=== PATIENT | female | born 1985 | race Caucasian/White ===

== ENCOUNTER 2016-07-29 15:32 | Emergency (ER) | payer SELFPAY ==
[~2016-07-29] VITALS: Ht 167.6 cm; Wt 59.0 kg
[~2016-07-29 15:32] MED LIST: ABILIFY; AMOX500C2 PO; ARPZ10T PO; CLNZ.5T PO; CLON0.5T3; DESV100T PO; ESTR2TAB4 PO; FLUO20CA25 PO; HYDR-3720 PO; HYDR25CA5 PO; METR500T PO; PENI500T PO; PROZAC; SULF1TAB38 PO; TRAM50TA2 PO
[2016-07-29] MEDS ORDERED: ONDANSETRON 4 MG (ZOFRAN) ORAL DISSOLVE TAB PO ONE (16:15)
--- NOTE | 2016-07-29 16:17 | ED GU-Female ---
General Chief Complaint: Abdominal/GI Problems Stated Complaint: PELVIC PAIN/SWELLING/VAG DISCHARGE/ODOR Nursing Triage Note: PT STATES LOW ABD PAIN ON BOTH SIDES AND VAGINAL DISCHARGE. Nursing Sepsis Screen: No Definite Risk Source: patient Exam Limitations: no limitations History of Present Illness Time seen by provider: 16:09 Initial Comments This 30-year-old white female presents with a complaint of pelvic pain and vaginal discharge present for the last 2 days. The patient denies significant fever, chills, dysuria or frequency, associated diarrhea or vomiting. The patient has been nauseated with her pain. Patient is unclear whether is a possibility. The patient is a Ab1 white female. Past medical history includes positive HPV. Allergies and Home Medications Allergies Coded Allergies: No Known Allergies (Verified Allergy, Unknown, 10/24/06) Home Medications No Active Prescriptions or Reported Meds Constitutional: No chills, No fever EENTM: No ear pain, No vision loss Respiratory: No cough Cardiovascular: No chest pain Gastrointestinal: No abdominal pain, No diarrhea, No vomiting Genitourinary: see HPI, discharge, pain (pelvic pain) Musculoskeletal: No back pain, No joint pain Skin: No rash Psychiatric/Neurological: No Symptoms Reported Endocrine: No Symptoms Reported Hematologic/Lymphatic: No Symptoms Reported Past Hbobzvo-Lefkzo-Qxehgr Hx Patient Social History Alcohol Use: Rarely Uses Recreational Drug Use: No Smoking Status: Current Everyday Smoker Type Used: Cigarettes Recent Foreign Travel: No Contact w/Someone Who Travel: No Recent Infectious Disease Expo: No Recent Hopitalizations: No Immunizations Up To Date Tetanus Booster (TDap): Less than 5yrs Seasonal Allergies Seasonal Allergies: No Surgeries HX Surgeries: No Respiratory Hx Respiratory Disorders: No Cardiovascular Hx Cardiac Disorders: No Neurological Hx Neurological Disorders: No Reproductive System : No Genitourinary Hx Genitourinary Disorders: No Gastrointestinal Hx Gastrointestinal Disorders: No Musculoskeletal Hx Musculoskeletal Disorders: No Endocrine Hx Endocrine Disorders: No HEENT HX ENT Disorders: No Cancer Hx Cancer: No Psychosocial Hx Psychiatric Problems: No Integumentary HX Skin/Integumentary Disorder: No Blood Transfusions Hx Blood Disorders: Yes (HEP C) Reviewed Nursing Assessment Reviewed/Agree w Nursing PMH: Yes Family Medical History Significant Family History: No Pertinent Family Hx Physical Exam Vital Signs Vital Sign - Last 12Hours 07/29/16 15:42 Temp 95.2 Pulse 90 Resp 18 B/P (MAP) 118/83 Pulse Ox 96 O2 Delivery Room Air Capillary Refill : Less Than 3 Seconds General Appearance: WD/WN, no apparent distress HEENT: normal ENT inspection Neck: non-tender, full range of motion, supple Cardiovascular: regular rate, rhythm, no murmur Respiratory: lungs clear, normal breath sounds Gastrointestinal: normal bowel sounds, non tender, soft Pelvic: normal external exam, discharge (small amount of whitish discharge is present.), tender w/ cervical motion, No tender adnexa, tender uterus (uterus was mildly tender to palpation on bimanual.) Back: normal inspection, no CVA tenderness Extremities: normal range of motion, non-tender, normal inspection Neurologic/Psychiatric: no motor/sensory deficits, alert, normal mood/affect Skin: normal color, warm/dry Progress/Results/Core Measures Results/Orders Lab Results Laboratory Tests Test 07/29/16 16:25 07/29/16 16:42 07/29/16 17:00 Range/Units Urine Color YELLOW Urine Clarity CLEAR Urine pH 6 5-9 Urine Specific Dent 1.015 L 1.016-1.022 Urine Protein NEGATIVE NEGATIVE Urine Glucose (UA) NEGATIVE NEGATIVE Urine Ketones NEGATIVE NEGATIVE Urine Nitrite NEGATIVE NEGATIVE Urine Bilirubin NEGATIVE NEGATIVE Urine Urobilinogen NORMAL NORMAL MG/DL Urine Leukocyte Esterase 2+ H NEGATIVE Urine RBC (Auto) NEGATIVE NEGATIVE Urine RBC NONE /HPF Urine WBC 2-5 /HPF Urine Squamous Epithelial Cells 5-10 /HPF Urine Crystals NONE /LPF Urine Bacteria NEGATIVE /HPF Urine Casts NONE /LPF Urine Mucus NEGATIVE /LPF Urine Trichomonas FEW H /HPF Urine Culture Indicated NO Urine Test NEGATIVE NEGATIVE White Blood Count 11.6 H 4.3-11.0 10^3/uL Red Blood Count 4.35 4.35-5.85 10^6/uL Hemoglobin 13.8 11.5-16.0 G/DL Hematocrit 40 35-52 % Mean Corpuscular Volume 91 80-99 FL Mean Corpuscular Hemoglobin 32 25-34 PG Mean Corpuscular Hemoglobin Concent 35 32-36 G/DL Red Cell Distribution Width 13.1 10.0-14.5 % Platelet Count 262 130-400 10^3/uL Mean Platelet Volume 10.1 7.4-10.4 FL Neutrophils (%) (Auto) 56 42-75 % Lymphocytes (%) (Auto) 30 12-44 % Monocytes (%) (Auto) 10 0-12 % Eosinophils (%) (Auto) 3 0-10 % Basophils (%) (Auto) 0 0-10 % Neutrophils # (Auto) 6.5 1.8-7.8 X 10^3 Lymphocytes # (Auto) 3.5 1.0-4.0 X 10^3 Monocytes # (Auto) 1.2 H 0.0-1.0 X 10^3 Eosinophils # (Auto) 0.3 0.0-0.3 10^3/uL Basophils # (Auto) 0.1 0.0-0.1 10^3/uL My Orders Orders - MICHELLE ALCARAZ MD Cbc With Automated Diff (07/29/16 16:07) Comprehensive Metabolic Panel (07/29/16 16:07) Ua Culture If Indicated (07/29/16 16:07) Hcg,Qualitative Urine (07/29/16 16:07) Ondansetron Oral Dissolve Tab (Zofran (07/29/16 16:15) Tramadol Tablet (Ultram Tablet) (07/29/16 16:15) Ua Culture If Indicated (07/29/16 16:53) Hcg,Qualitative Urine (07/29/16 16:53) Neisseria Gonorrhea Dna (07/29/16 16:53) Chlam Dna Probe (07/29/16 16:53) Wet Prep (07/29/16 16:53) Danielle Prep (07/29/16 16:53) Ceftriaxone Injection (Rocephin Injectio (07/29/16 17:15) Medications Given in ED Current Medications Medications Dose Ordered Sig/Michelle Route Start Time Stop Time Status Last Admin Dose Admin Ondansetron HCl 4 mg ONCE ONCE PO 07/29/16 16:15 07/29/16 16:16 DC 07/29/16 17:02 4 MG Tramadol HCl 100 mg ONCE ONCE PO 07/29/16 16:15 07/29/16 16:16 DC 07/29/16 17:02 100 MG Vital Signs/I&O Vital Sign - Last 12Hours 07/29/16 15:42 Temp 95.2 Pulse 90 Resp 18 B/P (MAP) 118/83 Pulse Ox 96 O2 Delivery Room Air Blood Pressure Mean: 95 Progress Note : Time: 17:06 Progress Note Patient received 250 mg Rocephin IM. She was placed on doxycycline 100 mg twice a day for the next 2 weeks as well as Flagyl 500 mg twice a day for 14 days. She was given hydrocodone and a small amount for pain. The patient will follow up with [facility] in 2 days as scheduled. Departure Impression Impression: Primary Impression: PID (acute pelvic inflammatory disease) Disposition: HOME, SELF-CARE Condition: Improved Departure-Patient Inst. Decision time for Depature: 17:09 Referrals: [facility] (PCP/Family) Primary Care Physician Patient Instructions: Acute Pelvic Pain (DC) Add. Discharge Instructions: Flagyl and doxycycline as prescribed for infection. Close follow-up with [facility] as scheduled on Saturday. Vicodin for pain. Return of any problems. All discharge instructions reviewed with patient and/or family. Voiced understanding. Scripts No Active Prescriptions or Reported Meds MICHELLE ALCARAZ MD Jul 29, 2016 16:17
[2016-07-29 16:33] LABS: BILIRUBIN,URINE NEGATIVE (NEGATIVE); KETONES,URINE NEGATIVE (NEGATIVE); LEUKOCYTE ESTERASE ,URINE 2+ (NEGATIVE); NITRITE,URINE NEGATIVE (NEGATIVE); PH,URINE 6 (5-9); PROTEIN,URINE NEGATIVE (NEGATIVE); UROBILINOGEN,URINE NORMAL (NORMAL)
[2016-07-29 16:45] LABS: TRICHOMONAS,URINE FEW /HPF
[2016-07-29 16:49] LABS: BASOPHILS # (AUTO) 0.1 10^3/uL (0.0-0.1); BASOPHILS % (AUTO) 0 % (0-10); EOSINOPHILS # (AUTO) 0.3 10^3/uL (0.0-0.3); EOSINOPHILS % (AUTO) 3 % (0-10); LYMPHOCYTES # (AUTO) 3.5 X 10^3 (1.0-4.0); LYMPHOCYTES % (AUTO) 30 % (12-44); MEAN CORPUSCULAR HEMOGLOBIN 32 PG (25-34); MEAN CORPUSCULAR HGB CONC 35 G/DL (32-36); MEAN CORPUSCULAR VOLUME 91 FL (80-99); MEAN PLATELET VOLUME 10.1 FL (7.4-10.4); MONOCYTES # (AUTO) 1.2 X 10^3 (0.0-1.0); MONOCYTES % (AUTO) 10 % (0-12); NEUTROPHILS # (AUTO) 6.5 X 10^3 (1.8-7.8); NEUTROPHILS % (AUTO) 56 % (42-75); PLATELET COUNT 262 10^3/uL (130-400); RED BLOOD COUNT 4.35 10^6/uL (4.35-5.85); RED CELL DISTRIBUTION WIDTH 13.1 % (10.0-14.5); WHITE BLOOD COUNT 11.6 10^3/uL (4.3-11.0)
[2016-07-29 17:08] LABS: ALANINE AMINOTRANSFERASE 13 U/L (0-55); ALBUMIN 3.8 G/DL (3.2-4.5); ANION GAP 8 MMOL/L (5-14); ASPARTATE AMINO TRANSFERASE 17 U/L (5-34); BILIRUBIN,TOTAL 0.5 MG/DL (0.1-1.0); BLOOD UREA NITROGEN 9 MG/DL (7-18); BUN/CREATININE RATIO 13; CARBON DIOXIDE 26 MMOL/L (21-32); CHLORIDE 108 MMOL/L (98-107); CREATININE SERUM 0.71 MG/DL (0.60-1.30); GFR ESTIMATED > 60; GLUCOSE 79 MG/DL (70-105); SODIUM 142 MMOL/L (135-145); TOTAL PROTEIN 6.4 G/DL (6.4-8.2)
[2016-07-29] MEDS ORDERED: cefTRIAXone INJECTION 250 MG in NS (IVPB) 50 ML IV ONE (17:15)
[2016-07-29] MEDS ORDERED: LIDOCAINE PF 1% 5 ML (XYLOCAINE) AMP ONE (17:23)
[2016-07-29 17:48] VITALS: BP 122/87
[2016-08-01 07:13] LABS: CHLAMYDIA DNA PROBE PT Negative (Negative)
[2016-08-01 07:14] LABS: NEISSERIA GONORRHEA DNA Negative (Negative)
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
--- OUTSIDE RECORDS SUMMARY | 2016-08-21 12:20 | XMS REPORT | Continuity of Care Document ---
Author Author [facility] Organization [facility] Address Unknown Phone Unavailable Care Team Providers Care Kitchen Work Supervisor Name Role Phone [facility] OF Insurance Providers Payer Name Policy Number Subscriber Name Relationship Self Pay Norah Garcia 01 Self / Same As Patient Advance Directives Directive Response Recorded Date Advance Directives N 01/25/13 11:04am Organ Donor Y 01/25/13 11:04am Problems No Known Problems or Medical conditions. Social History History Response Recorded Date/Time Alcohol Use Occasionally Uses 01/25/13 11 :04am Recreational Drug Use N 01/25/13 11:04am Sexually Transmitted Disease HPV 11:04am Allergies, Adverse Reactions, Alerts Allergen Type Severity Reaction Last Updated No Known Allergies Allergy Unknown 10/24/06 Medications Medication Dose Units Route Sig Qty Days Tramadol Hcl 50 Mg PO Q4H 14 Trimethoprim/Sulfamethoxazole (Bactrim Ds) 1 Ea PO BID 10 Metronidazole 1 Each PO TID 10 Penicillin V Potassium (Pen-Vee K) 1 Tab PO TID 30 Tramadol Hcl 50 Mg PO NEEDED 7 Estradiol (Estrace) 2 Mg PO PC 10 Hydroxyzine Pamoate (Vistaril) 50 Mg PO Q6H PRN Desvenlafaxine Succinate (Pristiq) 100 Mg PO DAILY Response Recorded Date/Time Status not known Unknown Results No Known Relevant Diagnostic Tests, Laboratory Data and/or Discharge Summary. Procedures Procedure Code Date MANUAL ASSIST TREMAYNE KLEIN 73.59 10/23/06 Encounters Encounter Location Date/Time Departed Emergency Room [facility] 10:48am Registered Emergency Room [facility] 05/24/09 3:39pm Discharged Inpatient [facility] 6:00pm
== END 2016-07-29 17:47 | disposition home or self-care (01) ==
LOC: EDUNIT# 15:32 → ER 15:35
DX: N73.9 Female pelvic inflammatory disease, unspecified (principal); F17.210 Nicotine dependence, cigarettes, uncomplicated
CPT/HCPCS: 36415; 80053; 81000; 84703; 85025; 87210; 87491; 87591; 96372; 99284

== ENCOUNTER 2017-12-10 15:08 | Inpatient (IN) | payer MEDICAID ==
[2017-12-10] VITALS (31 sets, daily range): BP systolic 119–162; BP diastolic 72–103
[~2017-12-10] VITALS: Ht 167.6 cm; Wt 72.1 kg
--- OUTSIDE RECORDS SUMMARY | 2017-12-10 15:15 | XMS REPORT ---
Author Author ABENA MOSCOSO Organization [facility] Address [address] [place] [address] Care Team Providers Care Group Fitness Department Head Name Role Phone BETOCARLYLAVINIA ABENA Unavailable PROBLEMS Type Condition ICD9-CM Code MXT51-VF Code Onset Dates Condition Status SNOMED Code Problem Hepatitis C virus infection without hepatic coma, unspecified chronicity B19.20 Active 35114304 Problem Drug use complicating in second trimester O99.322 Active 03490859 Problem Urinary tract infection during in second trimester, antepartum O23.42 Active 880763760 Problem Supervision of with insufficient care O09.30 Active 5407905967186 Problem Constipation, unspecified constipation type K59.00 Active 44709507 Problem Other mental disorders complicating , third trimester O99.343 Active 254501775 Problem Supervision of other high risk pregnancies, third trimester O09.893 Active 22094410 Problem Other specified related conditions, third trimester O26.893 Active 99383939 Problem Heartburn R12 Active 22131415 Problem History of intravenous drug abuse Z87.898 Active 38870101262525012 Problem Bipolar disorder with depression F31.30 Active 95389352 Problem History of herpes zoster Z86.19 Active 628147563920753 Problem Supervision of high risk due to social problems, antepartum O09.70 Active 211255222 Problem Major depressive disorder, single episode, unspecified F32.9 Active 08585051 ALLERGIES No Information ENCOUNTERS Encounter Location Date Diagnosis [facility] [address] [id number] [place] [id number] Dec, [facility] [address] [id number] [place] [id number] Nov, [facility] [address] [id number] [id number] Nov, Other specified related conditions, third trimester O26.[address] [id number][place] [id number] Nov, [place] [id number] [place] [id number] Nov, Supervision of other high risk pregnancies, third trimester O09.893 ; Other mental disorders complicating , third trimester O99.343 ; Bipolar disorder with depression F31.30 ; Supervision of high risk due to social problems, antepartum O09.70 ; Hepatitis C virus infection without hepatic coma, unspecified chronicity B19.20 ; Other specified related conditions, third trimester O26.893 ; Heartburn R12 ; Supervision of with insufficient care O09.30 and Vaginal leukorrhea N89.8 [address] [id number] Oct, Supervision of other high risk pregnancies, third trimester O09.893 ; Supervision of high risk due to social problems, antepartum O09.70 ; Other mental disorders complicating , third trimester O99.343 ; Bipolar disorder with depression F31.30 ; Other specified related conditions, third trimester O26.893 ; Heartburn R12 ; Constipation, unspecified constipation type K59.00 ; Urinary tract infection during in second trimester, antepartum O23.42 ; Drug use complicating in second trimester O99.322 and Supervision of with insufficient care O09.[address] [id number][place] [id number] Oct, [address] [place] [id number] Oct, Supervision of other high risk pregnancies, third trimester O09.893 ; Other mental disorders complicating , third trimester O99.343 ; Bipolar disorder with depression F31.30 ; Supervision of high risk due to social problems, antepartum O09.70 ; Hepatitis C virus infection without hepatic coma, unspecified chronicity B19.20 ; Other specified related conditions, third trimester O26.893 ; Heartburn R12 ; Encounter for screening for Streptococcus B Z36.85 and Constipation, unspecified constipation type K59.00 [address]100[place] [id number] Oct, [facility] [id number] [id number] Oct, Supervision of other high risk pregnancies, third trimester O09.893 ; Other mental disorders complicating , third trimester O99.343 ; Bipolar disorder with depression F31.30 ; Hepatitis C virus infection without hepatic coma, unspecified chronicity B19.20 ; Other specified related conditions, third trimester O26.893 ; Heartburn R12 ; Supervision of high risk due to social problems, antepartum O09.70 ; History of intravenous drug abuse Z87.898 and Major depressive disorder, single episode, unspecified F32.9 [facility] [id number] [place] [address] [id number] Oct, [facility] [id number] [place] [address] [id number] Sep, Major depressive disorder, single episode, unspecified F32.9 [facility] [id number] [place] [address] [id number] Sep, [facility] [id number] [place] [address] [id number] Sep, Supervision of other high risk pregnancies, third trimester O09.893 ; Other mental disorders complicating , third trimester O99.343 ; Bipolar disorder with depression F31.30 ; History of intravenous drug abuse Z87.898 ; Supervision of high risk due to social problems, antepartum O09.70 ; Hepatitis C virus infection without hepatic coma, unspecified chronicity B19.20 ; Other specified related conditions, third trimester O26.893 ; Heartburn R12 and Encounter for immunization Z23 [place] [address] [facility] [id number] [id number] Sep, Supervision of other high risk pregnancies, third trimester O09.893 [facility] [id number][place] [id number] Sep, [address]100[place] [id number] Sep, [facility] [id number] [place] [address] [id number] Sep, Supervision of other high risk pregnancies, third trimester O09.893 ; Other mental disorders complicating , third trimester O99.343 ; Supervision of high risk due to social problems, antepartum O09.70 ; History of intravenous drug abuse Z87.898 ; Acute non-recurrent pansinusitis J01.40 ; Heartburn R12 ; Other specified related conditions, third trimester O26.893 and Elevated blood pressure reading R03.0 [facility] [address] [id number] [address] August, [facility] [id number] [place] [address] [id number] August, [facility] [id number] [place] [address] [id number] August, Supervision of other high risk pregnancies, second trimester O09.892 ; Supervision of other high risk pregnancies, third trimester O09.893 ; High risk sexual behavior Z72.51 ; Other mental disorders complicating , third trimester O99.343 ; Supervision of high risk due to social problems, antepartum O09.70 and Hepatitis C virus infection without hepatic coma, unspecified chronicity B19.20 [facility] [id number] [place] [address] [id number] August, Major depressive disorder, single episode, unspecified F32.9 [facility] [address] [place] [address] [id number] August, Vaginal leukorrhea N89.8 [facility] [address] [place] [address] [id number] August, [facility] [address] [place] [address] [id number] August, Supervision of other high risk pregnancies, second trimester O09.892 [facility] [id number] [place] [address] [id number] Jul, [facility] [id number] [place] [address] [id number] Jul, Supervision of high risk in first trimester O09.91 ; Supervision of other high risk pregnancies, second trimester O09.892 ; Other mental disorders complicating , second trimester O99.342 ; Drug use complicating in second trimester O99.322 ; History of herpes zoster Z86.19 ; Supervision of high risk due to social problems, antepartum O09.70 ; Bipolar disorder with depression F31.30 ; Hepatitis C virus infection without hepatic coma, unspecified chronicity B19.20 ; Urinary tract infection during in second trimester, antepartum O23.42 and Major depressive disorder, single episode, unspecified F32.[address] [id number][place] [id number] Jun, [address] [place] [address] [id number] Jun, [address]00565100[place] [id number] May, Supervision of high risk in first trimester O09.91 [address] [place] [address] [id number] May, Supervision of high risk in first trimester O09.91 ; Major depressive disorder, single episode, unspecified F32.9 ; Other mental disorders complicating , first trimester O99.341 ; Bipolar disorder with depression F31.30 ; History of intravenous drug abuse Z87.898 ; Drug use complicating in first trimester O99.321 ; Smoking (tobacco) complicating , first trimester O99.331 ; Supervision of high risk due to social problems, antepartum O09.70 ; History of herpes zoster Z86.19 and Hepatitis C virus infection without hepatic coma, unspecified chronicity B19.[address] [id number] [id number] Apr, Cold sore B00.1 and Positive test Z32.[address] [place] [address] [id number] Apr, Positive test Z32.01 and Folliculitis L73.[address] [place] [address] [id number] Mar, Cutaneous abscess of other site L02.818 and Folliculitis L73.9 [facility] [address] [facility] [id number][place] [id number] 26 Dec, 2016 Well woman exam with routine gynecological exam Z01.419 ; High risk sexual behavior Z72.51 ; History of HPV infection Z86.19 and History of abnormal cervical Pap smear Z87.898 [facility] [address]00565100[place], [place] [address] 14 Jul, 2014 [facility] [address]65100[place], [place] [address] 13 Jul, 2014 [facility] [address] [place] [address] Jan, [facility] [address]00565100[place], [place] [address] Jan, [facility] [id number] [place] [address] Jan, [facility] [address]65100[place], [place] [address] Jan, [facility] [address]65100[place], [place] [address] 8[address] Jan, [facility] [address]100[place], [place] [address] Jan, [facility] [address]100[place], [place] [address] Sep, [facility] [address]100[place], [place] [address] Sep, [facility] [address]100[place], [place] [address] Sep, [facility] [address]100[place], [place] [address] August, [facility] [address]100[place], [place] [address] August, [facility] [address] [facility] [id number], [place] [address] August, [facility] [address] [facility] [id number], [place] [address] Jul, [facility] [address] [facility] [id number], [place] [address] Feb, [facility] [address] [facility] [id number] [place] [address]87[address]- 3509 Feb, [facility] [address] [facility] [id number], [place] [address] Dec, [facility] [address] [facility] [id number] [place] [address]- [address] Oct, [facility] [address]100[place], [place] [address] 5[address] Sep, [facility] [address] [place] [address] 89946- 2497 Sep, [facility] [address]100[place], [place] [address] Jul, [facility] [address]100[place], [place] [address]- 29[address] Feb, [facility] [address]100[place], [place] [address]- 0140 Jan, [facility] [address], [place] [address]- 8277 Jan, [facility] [address] [id number] [address]- [address] Jan, [facility] [address]100[place], [place] [address]- [address] Jan, [facility] [address] [id number] [address] Oct, IMMUNIZATIONS No Known Immunizations SOCIAL HISTORY Never Assessed REASON FOR VISIT Triage Yulisa QUIROZ PLAN OF CARE VITAL SIGNS MEDICATIONS Medication Instructions Dosage Frequency Start Date End Date Duration Status Zoloft 100 mg Orally Once a day 1 tablet 24h Jul, 0 days Active RESULTS No Results PROCEDURES No Known procedures INSTRUCTIONS MEDICATIONS ADMINISTERED No Known Medications MEDICAL (GENERAL) HISTORY Type Description Date Medical History hepatitis C Medical History HPV-had to have laser surgery for warts Medical History HX of shingles on face Medical History Herpes zoster without mention of complication Surgical History Laser surgery for genital warts age 16
--- OUTSIDE RECORDS SUMMARY | 2017-12-10 15:15 | XMS REPORT ---
Author Author ABENA MOSCOSO Organization [facility] Address [address] [place] [address] Care Team Providers Care Seam Checker Name Role Phone BETOCARLYLAVINIA ABENA Unavailable PROBLEMS Type Condition ICD9-CM Code FVR84-GD Code Onset Dates Condition Status SNOMED Code Problem Hepatitis C virus infection without hepatic coma, unspecified chronicity B19.20 Active 66346710 Problem Drug use complicating in second trimester O99.322 Active 47511486 Problem Urinary tract infection during in second trimester, antepartum O23.42 Active 528342692 Problem Supervision of with insufficient care O09.30 Active 4792003462857 Problem Constipation, unspecified constipation type K59.00 Active 60322581 Problem Other mental disorders complicating , third trimester O99.343 Active 468800885 Problem Supervision of other high risk pregnancies, third trimester O09.893 Active 08741774 Problem Other specified related conditions, third trimester O26.893 Active 54247287 Problem Heartburn R12 Active 59653929 Problem History of intravenous drug abuse Z87.898 Active 69742955335923632 Problem Bipolar disorder with depression F31.30 Active 28371306 Problem History of herpes zoster Z86.19 Active 794669407139656 Problem Supervision of high risk due to social problems, antepartum O09.70 Active 442814602 Problem Major depressive disorder, single episode, unspecified F32.9 Active 19342095 ALLERGIES No Information ENCOUNTERS Encounter Location Date Diagnosis [facility] [address] [id number] [place] [id number] Dec, [facility] [address] [id number] [place] [id number] 14 Nov, 2017 [facility] [address] [id number] [place] [id number] Nov, Other specified related conditions, third trimester O26.[address] [id number], [place] [id number] Nov, [place] [id number] [place] [address] [id number] Nov, Supervision of other high risk pregnancies, [...] insufficient care O09.30 and Vaginal leukorrhea N89.[address]00565100[place], [place] [id number] Oct, Supervision of other high risk pregnancies, [...] and Supervision of with insufficient care O09.[address] [id number][place] [id number] Oct, [address] [place] [address] [id number] Oct, Supervision of other high risk pregnancies, [...] Z36.85 and Constipation, unspecified constipation type K59.00 [address]00565100[place], [place] [id number] Oct, [facility] [id number], [place] [id number] Oct, Supervision of other high risk pregnancies, [...] Major depressive disorder, single episode, unspecified F32.9 [facility] [id number] [place] [address] [id number] Oct, [facility] [id number] [place] [address] [id number] Sep, Major depressive disorder, single episode, unspecified F32.9 [facility] [id number] [place] [address] [id number] Sep, [facility] [id number] [place] [address] [id number] Sep, Supervision of other high risk pregnancies, [...] Heartburn R12 and Encounter for immunization Z23 [place] [id number] [facility] [id number] [place] [id number] Sep, Supervision of other high risk pregnancies, third trimester O09.893 [facility] [id number], [place] [id number] Sep, [address]00565100[place], [place] [id number] Sep, [facility] [id number] [place] [address] [id number] Sep, Supervision of other high risk pregnancies, third trimester O09.893 ; Other mental disorders complicating , third trimester O99.343 ; Supervision of high risk due to social problems, antepartum O09.70 ; History of intravenous drug abuse Z87.898 ; Acute non-recurrent pansinusitis J01.40 ; Heartburn R12 ; Other specified related conditions, third trimester O26.893 and Elevated blood pressure reading R03.0 [facility] [address] [id number], [place] [address] August, [facility] [id number] [place] [address] [id number] August, [facility] [id number] [place] [address] [id number] August, Supervision of other high risk pregnancies, second trimester O09.892 ; Supervision of other high risk pregnancies, third trimester O09.893 ; High risk sexual behavior Z72.51 ; Other mental disorders complicating , third trimester O99.343 ; Supervision of high risk due to social problems, antepartum O09.70 and Hepatitis C virus infection without hepatic coma, unspecified chronicity B19.20 [facility] [id number] [place] [address] [id number] August, Major depressive disorder, single episode, unspecified F32.9 [facility] [id number] [place] [address] [id number] August, Vaginal leukorrhea N89.8 [facility] [id number] [place] [address] [id number] August, [facility] [address] [place] [address] [id number] August, Supervision of other high risk pregnancies, second trimester O09.892 [facility] [id number] [place] [address] [id number] Jul, [facility] [id number] [place] [address] [id number] Jul, Supervision of high risk in first [...] Major depressive disorder, single episode, unspecified F32.[address] [id number], [place] [id number] Jun, [address] [place] [address] [id number] Jun, [address]00565100[place] [id number] May, Supervision of high risk in first trimester O09.91 [address] [place] [address] [id number] May, Supervision of high risk in first [...] infection without hepatic coma, unspecified chronicity B19.[address] [id number][place] [id number] Apr, Cold sore B00.1 and Positive test Z32.01 [address] [place] [address] [id number] Apr, Positive test Z32.01 and Folliculitis L73.[address] [place] [address] [id number] Mar, Cutaneous abscess of other site L02.818 and Folliculitis L73.9 [facility] [address] [facility] [id number][place] [id number] 26 Dec, 2016 Well woman exam with routine gynecological exam Z01.419 ; High risk sexual behavior Z72.51 ; History of HPV infection Z86.19 and History of abnormal cervical Pap smear Z87.898 [facility] [address]00565100[place], [place] [address] 14 Jul, 2014 [facility] [address]00565100[place], [place] [address]- [address] 13 Jul, 2014 [facility] [address] [place] [address] 073590- 2679 Jan, [facility] [address]00565100[place], [place] [address]- 4189 Jan, [facility] [id number] [place] [address] 49[address]- 5910 Jan, [facility] [address]005[address]100[place], [place] [address]- 3227 Jan, [facility] [address]005[address]100[place], [place] [address]- 7839 Jan, [facility] [address]005[address]100[place], [place] [address]- 6805 Jan, [facility] [address], [place] [address]- 7836 Sep, [facility] [address]100[place] [address]- 5325 Sep, [facility] [address]100[place], [place] [address]- 3359 Sep, [facility] [address] [address]36 August, [facility] [address]005[address]100[place], [place] [address]- 5446 August, [facility] [address] [facility] [id number], [place] [address]- 8606 August, [facility] [address] [facility] [id number], [place] [address]- 1492 Jul, [facility] [address] [facility] [id number], [place] [address]- 5756 Feb, [facility] [address] [facility] [id number] [place] [address]19- 3220 Feb, [facility] [address] [facility] [id number] [address]- 1240 Dec, [facility] [address] [facility] [id number] [place] [address] 38491- 0589 Oct, [facility] [address] [id number], [place] [address]- 6205 Sep, [facility] [address]005[address], [place] [address]- 4249 Sep, [facility] [address], [place] [address]- 2143 Jul, [facility] [address], [place] [address]- 9160 Feb, [facility] [address]005[address], [place] [address]- 2562 Jan, [facility] [address], [place] [address]- 0765 Jan, [facility] [address] [id number] 6192 Jan, [facility] [address]005[address]100[place], [place] [address]- 6863 Jan, [facility] [address] [id number], [place] [address]- 5278 Oct, IMMUNIZATIONS No Known Immunizations SOCIAL HISTORY Never Assessed REASON FOR VISIT vaginal itch and burn PLAN OF CARE VITAL SIGNS MEDICATIONS Medication Instructions Dosage Frequency Start Date End Date Duration Status Diflucan 150 MG Orally Once a day 1 tablet 24h August, 1 dose Active RESULTS No Results PROCEDURES No Known [...]
--- OUTSIDE RECORDS SUMMARY | 2017-12-10 15:16 | XMS REPORT ---
Author Author ABENA MOSCOSO Organization [facility] Address [address] [place] [address] Care Team Providers Care Epic Beacon Analyst Name Role Phone BETOCARLYMALIKACatrachita ABENA Unavailable PROBLEMS Type Condition ICD9-CM Code BVB28-ZN Code Onset Dates Condition Status SNOMED Code Problem Hepatitis C virus infection without hepatic coma, unspecified chronicity B19.20 Active 16933882 Problem Drug use complicating in second trimester O99.322 Active 08986092 Problem Urinary tract infection during in second trimester, antepartum O23.42 Active 107928342 Problem Supervision of with insufficient care O09.30 Active 2824522379543 Problem Constipation, unspecified constipation type K59.00 Active 23443709 Problem Other mental disorders complicating , third trimester O99.343 Active 247222624 Problem Supervision of other high risk pregnancies, third trimester O09.893 Active 69775927 Problem Other specified related conditions, third trimester O26.893 Active 92156008 Problem Heartburn R12 Active 04126232 Problem History of intravenous drug abuse Z87.898 Active 40849802226681453 Problem Bipolar disorder with depression F31.30 Active 49783813 Problem History of herpes zoster Z86.19 Active 045185803796090 Problem Supervision of high risk due to social problems, antepartum O09.70 Active 391821244 Problem Major depressive disorder, single episode, unspecified F32.9 Active 55263731 ALLERGIES No Known Allergies ENCOUNTERS Encounter Location Date Diagnosis [facility] [address] [id number] [place] [id number] Dec, [facility] [address] [id number] [place] [id number] Nov, [facility] [address] [id number] [place] [id number] Oct, Supervision of other high risk pregnancies, [...] and Supervision of with insufficient care O09.30 [id number] [place] [address] [id number] Oct, [id number] [place] [address] [id number] Oct, Supervision of other high risk pregnancies, [...] Z36.85 and Constipation, unspecified constipation type K59.00 [id number] [place] [address] [id number] Oct, [id number] [place] [address] [id number] Oct, Supervision of other high risk pregnancies, [...] Major depressive disorder, single episode, unspecified F32.9 [address] [place] [address] [id number] Oct, [id number] [place] [address] [id number] Sep, Major depressive disorder, single episode, unspecified F32.9 [facility] [id number] [place] [id number] Sep, [facility] [id number] [place] [address] [id number] Sep, Supervision of other high risk pregnancies, [...] Heartburn R12 and Encounter for immunization Z23 [address] [id number] [id number] Sep, Supervision of other high risk pregnancies, third trimester O09.893 [facility] [id number] [place] [address] [id number] Sep, [facility] [id number] [place] [address] [id number] Sep, [facility] [id number] [place] [address] [id number] Sep, Supervision of other high risk pregnancies, third trimester O09.893 ; Other mental disorders complicating , third trimester O99.343 ; Supervision of high risk due to social problems, antepartum O09.70 ; History of intravenous drug abuse Z87.898 ; Acute non-recurrent pansinusitis J01.40 ; Heartburn R12 ; Other specified related conditions, third trimester O26.893 and Elevated blood pressure reading R03.0 [facility] [address] [id number] [address] August, [facility] [id number] [place] [id number] August, [facility] [id number] [place] [address] [id number] August, Supervision of other high risk pregnancies, second trimester O09.892 ; Supervision of other high risk pregnancies, third trimester O09.893 ; High risk sexual behavior Z72.51 ; Other mental disorders complicating , third trimester O99.343 ; Supervision of high risk due to social problems, antepartum O09.70 and Hepatitis C virus infection without hepatic coma, unspecified chronicity B19.20 [facility] [id number] [place] [id number] August, Major depressive disorder, single episode, unspecified F32.9 [facility] [id number] [place] [id number] August, Vaginal leukorrhea N89.8 [facility] [id number] [place] [address] [id number] August, [facility] [id number] [place] [address] [id number] August, Supervision of other high risk pregnancies, second trimester O09.892 [facility] [id number] [place] [address] [id number] Jul, [facility] [id number] [place] [address] [id number] Jul, Supervision of high risk in first [...] Major depressive disorder, single episode, unspecified F32.9 [facility] [id number] [place] [id number] Jun, [facility] [address]00565100[place] [id number] Jun, [address] [id number], [place] [id number] May, Supervision of high risk in first trimester O09.91 [id number] [place] [address] [id number] May, Supervision of high risk in first [...] infection without hepatic coma, unspecified chronicity B19.[address] [id number] Apr, Cold sore B00.1 and Positive test Z32.[address] [id number] Apr, Positive test Z32.01 and Folliculitis L73.9 [id number] [place] [address] [id number] Mar, Cutaneous abscess of other site L02.818 and Folliculitis L73.9 [id number] [place] [address] [id number] Dec, Well woman exam with routine gynecological exam Z01.419 ; High risk sexual behavior Z72.51 ; History of HPV infection Z86.19 and History of abnormal cervical Pap smear Z87.898 [id number] [place] [address] Jul, [address] [id number]- [address] Jul, [facility] [address] [id number]- [address] Jan, [facility] [address] [id number]- [address] Jan, [facility] [address] [id number] [place] [address] Jan, [facility] [place] [facility] [address] [id number] [place] [address] Jan, [facility] [place] [facility] [address] [id number] [place] [address] Jan, [facility] [place] [facility] [address] [id number] [place] [address]47 Jan, [facility] [address] [id number] [place] [address] Sep, [facility] [place] [facility] [address] [id number] [place] [address] Sep, [facility] [place] [facility] [address] [id number] [place] [address] Sep, [facility] [place] [facility] [address] [id number] [place] [address] August, [facility] [place] [facility] [address] [id number] [place] [address] August, [facility] [place] [facility] [address] [id number] [place] [address] August, [facility] [place] [facility] [address] [id number] [place] [address] Jul, [facility] [place] [facility] [address] [id number] [place] [address] Feb, [facility] [place] [facility] [address] [id number] [place] [address] Feb, [facility] [place] [facility] [address] [id number] [place] [address] Dec, [facility] [place] [facility] [address] [id number] [place] [address] Oct, [facility] [place] [facility] [address] [id number] [place] [address] Sep, [facility] [address]00565100[place] [address] Sep, [facility] [address]00565100[place] [address] Jul, [facility] [address]00565100[place] [address] Feb, [facility] [address] [place] [address] Jan, [facility] [address] [place] [address]- 4556 Jan, [facility] [address] [place] [address]- 9696 Jan, [facility] [address]00565100[place] [address] Jan, [facility] [address]00565100[place] [address] Oct, IMMUNIZATIONS No Known Immunizations SOCIAL HISTORY Never Assessed REASON FOR VISIT OB f/u 19 weeks and 5 days ---RICHIE weinstein PLAN OF CARE Activity Details Follow Up 5 weeks Reason: Pending Test URINE DRUG SCREEN (IN HOUSE) Pending Test UA LONG DIP (IN HOUSE) Pending Test PAP REFLEX TO HPV IF ASCUS VITAL SIGNS Height 66 in 2017-08-01 Weight 132.8 lbs 2017-08-01 Temperature 97.2 degrees Fahrenheit 2017-08-01 Heart Rate 112 bpm 2017-08-01 Respiratory Rate 16 2017-08-01 BMI 21.434 kg/m2 2017-08-01 Blood pressure systolic 110 mmHg 2017-08-01 Blood pressure diastolic 76 mmHg 2017-08-01 MEDICATIONS Medication Instructions Dosage Frequency Start Date End Date Duration Status Macrobid 100 mg Orally every 12 hrs 1 capsule with food 12h Jul, Jul, 7 day(s) Active Classic 28-0.8 MG Orally Once a day as directed 24h May, 30 days Active Zoloft 100 mg Orally Once a day 1 tablet 24h Jul, 30 day(s) Active Acyclovir 5 % Externally Five times a day 1 application to affected area Apr, 4 day(s) Active RESULTS No Results PROCEDURES Procedure Date Ordered Result Body Site [facility] August 01, 2017 URINALYSIS, AUTO, W/O SCOPE August 01, 2017 VENIPUNCT, ROUTINE* August 01, 2017 CHRMOML ANEUPLOIDY August 01, 2017 DRUG TEST PRSMV DIR OPT OBS August 01, 2017 TRICHINELLA ANTIBODY August 01, 2017 SPECIMEN HANDLING August 01, 2017 INSTRUCTIONS MEDICATIONS ADMINISTERED No Known Medications MEDICAL (GENERAL) HISTORY Type Description Date Medical History hepatitis C Medical History HPV-had to have laser surgery for warts Medical History HX of shingles on face Medical History Herpes zoster without mention of complication Surgical History Laser surgery for genital warts age 16
--- OUTSIDE RECORDS SUMMARY | 2017-12-10 15:16 | XMS REPORT ---
Author Author ABENA MOSCOSO Organization [facility] Address [address] [place] [address] Care Team Providers Care Rn Transfer Name Role Phone BETOCARLYLAVINIA ABENA Unavailable PROBLEMS Type Condition ICD9-CM Code WAN69-PB Code Onset Dates Condition Status SNOMED Code Problem Hepatitis C virus infection without hepatic coma, unspecified chronicity B19.20 Active 83841223 Problem Drug use complicating in second trimester O99.322 Active 76711852 Problem Urinary tract infection during in second trimester, antepartum O23.42 Active 665353611 Problem Supervision of with insufficient care O09.30 Active 7289743965880 Problem Constipation, unspecified constipation type K59.00 Active 18025608 Problem Other mental disorders complicating , third trimester O99.343 Active 467474159 Problem Supervision of other high risk pregnancies, third trimester O09.893 Active 53773978 Problem Other specified related conditions, third trimester O26.893 Active 66027850 Problem Heartburn R12 Active 40216601 Problem History of intravenous drug abuse Z87.898 Active 77338601428908442 Problem Bipolar disorder with depression F31.30 Active 57598350 Problem History of herpes zoster Z86.19 Active 854963920124399 Problem Supervision of high risk due to social problems, antepartum O09.70 Active 870518705 Problem Major depressive disorder, single episode, unspecified F32.9 Active 48555673 ALLERGIES No Information ENCOUNTERS Encounter Location Date Diagnosis [facility] [address] [id number] [place] [id number] Dec, [facility] [address] [id number][place] [id number] Nov, [facility] [address] [id number], [place] [id number] Nov, [facility] [address]00565[place] [id number] Nov, Supervision of other high risk pregnancies, [...] insufficient care O09.30 and Vaginal leukorrhea N89.[address] [place] [address] [id number] Oct, Supervision of other high risk pregnancies, [...] and Supervision of with insufficient care O09.30 [address] [place] [address] [id number] Oct, [address] [place] [address] [id number] Oct, Supervision of other high risk pregnancies, [...] Z36.85 and Constipation, unspecified constipation type K59.00 [address]00565[place] [id number] Oct, [id number] [place] [address] [id number] Oct, Supervision of other high risk pregnancies, [...] Major depressive disorder, single episode, unspecified F32.9 [facility] [id number] [place] [address] [id number] Oct, [facility] [id number] [place] [address] [id number] Sep, Major depressive disorder, single episode, unspecified F32.9 [facility] [id number] [place] [address] [id number] Sep, [facility] [id number] [place] [address] [id number] Sep, Supervision of other high risk pregnancies, [...] Heartburn R12 and Encounter for immunization Z23 [address] [id number] [id number] Sep, Supervision of other high risk pregnancies, third trimester O09.893 [facility] [address] [facility] [id number][place] [id number] Sep, [facility] [id number], [place] [id number] Sep, [facility] [id number], [place] [id number] Sep, Supervision of other high risk pregnancies, third trimester O09.893 ; Other mental disorders complicating , third trimester O99.343 ; Supervision of high risk due to social problems, antepartum O09.70 ; History of intravenous drug abuse Z87.898 ; Acute non-recurrent pansinusitis J01.40 ; Heartburn R12 ; Other specified related conditions, third trimester O26.893 and Elevated blood pressure reading R03.0 [facility] [address] [id number] [address] August, [facility] [id number] [place] [address] [id number] August, [facility] [id number] [place] [address] [id number] August, Supervision of other high risk pregnancies, second trimester O09.892 ; Supervision of other high risk pregnancies, third trimester O09.893 ; High risk sexual behavior Z72.51 ; Other mental disorders complicating , third trimester O99.343 ; Supervision of high risk due to social problems, antepartum O09.70 and Hepatitis C virus infection without hepatic coma, unspecified chronicity B19.20 [facility] [id number] [place] [address] [id number] August, Major depressive disorder, single episode, unspecified F32.9 [facility] [id number] [place] [address] [id number] August, Vaginal leukorrhea N89.8 [facility] [id number] [place] [address] [id number] August, [facility] [id number] [place] [address] [id number] August, Supervision of other high risk pregnancies, second trimester O09.892 [facility] [id number] [place] [address] [id number] Jul, [facility] [id number] [place] [address] [id number] Jul, Supervision of high risk in first [...] Major depressive disorder, single episode, unspecified F32.[address] [id number], [place] [id number] Jun, [address] [place] [address] [id number] Jun, [address] [id number], [place] [id number] May, Supervision of high risk in first trimester O09.91 [address] [place] [address] [id number] May, Supervision of high risk in first [...] infection without hepatic coma, unspecified chronicity B19.20 [address] [place] [address] [id number] Apr, Cold sore B00.1 and Positive test Z32.01 [address] [place] [address] [id number] Apr, Positive test Z32.01 and Folliculitis L73.9 [id number] [place] [address] [id number] Mar, Cutaneous abscess of other site L02.818 and Folliculitis L73.9 [address] [place] [address] [id number] 26 Sep, 2017 Well woman exam with routine gynecological exam Z01.419 ; High risk sexual behavior Z72.51 ; History of HPV infection Z86.19 and History of abnormal cervical Pap smear Z87.898 [facility] [address]00565100[place] [address] 14 Jul, 2014 [facility] [address]00565[address] [address] Jul, [facility] [address] [facility] [id number] [place] [address]- [address] Jan, [facility] [address] [facility] [id number] [place] [address] 496639- 5842 Jan, [facility] [id number] [place] [address] 453113- 7585 Jan, [facility] [id number] [place] [address] 32515- 1482 Jan, [facility] [id number] [place] [address]31- 2801 Jan, [facility] [address]00565100[place] [address] Jan, [facility] [address]00565100[place] [address] Sep, [facility] [address]00565100[place], [place] [address]- 7[address] Sep, [facility] [address]00565100[place], [place] [address]- 8835 Sep, [facility] [address]00565100[place] [address] August, [facility] [address] [id number], [place] [address]- 9409 August, [facility] [address]00565100[place], [place] [address]- 9[address] August, [facility] [address] [id number], [place] [address]- 6[address] Jul, [facility] [address]00565100[place], [place] [address]- 4[address] Feb, [facility] [address]00565100[place], [place] [address]- 3526 Feb, [facility] [address]00565100[place], [place] [address]- 9666 Dec, [facility] [address]00565100[place], [place] [address]- 1126 Oct, [facility] [address] [place] [address] 89772- 6453 Sep, [facility] [address] [place] [address] 40821- 0256 Sep, [facility] [address] [place] [address] 49545- 0022 Jul, [facility] [address]00565100[place], [place] [address]- 4[address] Feb, [facility] [address]00565100[place], [place] [address]- 8266 Jan, [facility] [address]00565100[place], [place] [address]- 5[address] Jan, [facility] [address]00565100[place], [place] [address]- 4345 Jan, [facility] [address]00565100[place], [place] [address]- [address] Jan, [facility] [address]00565100[place], [place] [address]- 9102 Oct, IMMUNIZATIONS No Known Immunizations SOCIAL HISTORY Never Assessed REASON FOR VISIT PLAN OF CARE VITAL SIGNS MEDICATIONS Unknown Medications RESULTS No Results PROCEDURES No Known procedures INSTRUCTIONS MEDICATIONS ADMINISTERED No Known Medications MEDICAL (GENERAL) HISTORY Type Description Date Medical History hepatitis C Medical History HPV-had to have laser surgery for warts Medical History HX of shingles on face Medical History Herpes zoster without mention of complication Surgical History Laser surgery for genital warts age 16
--- OUTSIDE RECORDS SUMMARY | 2017-12-10 15:16 | XMS REPORT ---
Author Author ABENA MOSCOSO Organization [facility] Address [address] [place] [address] Care Team Providers Care Auto Service Representative Name Role Phone BETOCARLYLAVINIA ABENA Unavailable PROBLEMS Type Condition ICD9-CM Code RLX74-OK Code Onset Dates Condition Status SNOMED Code Problem Hepatitis C virus infection without hepatic coma, unspecified chronicity B19.20 Active 08582294 Problem Drug use complicating in second trimester O99.322 Active 97646615 Problem Urinary tract infection during in second trimester, antepartum O23.42 Active 107860168 Problem Supervision of with insufficient care O09.30 Active 0442949171784 Problem Constipation, unspecified constipation type K59.00 Active 03594929 Problem Other mental disorders complicating , third trimester O99.343 Active 548915766 Problem Supervision of other high risk pregnancies, third trimester O09.893 Active 52452575 Problem Other specified related conditions, third trimester O26.893 Active 14841426 Problem Heartburn R12 Active 33432795 Problem History of intravenous drug abuse Z87.898 Active 95441650416187140 Problem Bipolar disorder with depression F31.30 Active 25984157 Problem History of herpes zoster Z86.19 Active 894593617863177 Problem Supervision of high risk due to social problems, antepartum O09.70 Active 975797267 Problem Major depressive disorder, single episode, unspecified F32.9 Active 98259426 ALLERGIES No Information ENCOUNTERS Encounter Location Date Diagnosis [facility] [address] [id number] [id number] Dec, [facility] [address] [facility] [id number] [id number] Nov, [facility] [address] [id number][place] [id number] Oct, Supervision of other high risk pregnancies, [...] and Supervision of with insufficient care O09.30 [address] [id number] [place] [address] [id number] Oct, [place] [id number] [place] [address] [id number] Oct, Supervision of other high risk pregnancies, [...] Z36.85 and Constipation, unspecified constipation type K59.00 [place] [id number] [place] [address] [id number] Oct, [address] [place] [address] [id number] Oct, Supervision of other high risk pregnancies, [...] Major depressive disorder, single episode, unspecified F32.9 [address] [place] [address] [id number] Oct, [place] [id number] [place] [address] [id number] Sep, Major depressive disorder, single episode, unspecified F32.9 [facility] [id number], [place] [id number] Sep, [facility] [id number] [place] [address] [id number] Sep, Supervision of other high risk pregnancies, [...] Heartburn R12 and Encounter for immunization Z23 [address] [id number][place] [id number] Sep, Supervision of other high risk pregnancies, third trimester O09.893 [facility] [id number] [place] [address] [id number] Sep, [facility] [id number] [place] [address] [id number] Sep, [facility] [id number] [place] [address] [id number] Sep, Supervision of other high risk pregnancies, third trimester O09.893 ; Other mental disorders complicating , third trimester O99.343 ; Supervision of high risk due to social problems, antepartum O09.70 ; History of intravenous drug abuse Z87.898 ; Acute non-recurrent pansinusitis J01.40 ; Heartburn R12 ; Other specified related conditions, third trimester O26.893 and Elevated blood pressure reading R03.0 [facility] [address] [facility] [id number] [address] August, [facility] [id number], [place] [id number] August, [facility] [id number], [place] [id number] August, Supervision of other high risk pregnancies, second trimester O09.892 ; Supervision of other high risk pregnancies, third trimester O09.893 ; High risk sexual behavior Z72.51 ; Other mental disorders complicating , third trimester O99.343 ; Supervision of high risk due to social problems, antepartum O09.70 and Hepatitis C virus infection without hepatic coma, unspecified chronicity B19.20 [facility] [id number], [place] [id number] August, Major depressive disorder, single episode, unspecified F32.9 [facility] [id number], [place] [id number] August, Vaginal leukorrhea N89.8 [facility] [id number] [place] [address] [id number] August, [facility] [id number] [place] [address] [id number] August, Supervision of other high risk pregnancies, second trimester O09.892 [id number] [place] [address] [id number] Jul, [address] [place] [address] [id number] Jul, Supervision of high risk in first [...] Major depressive disorder, single episode, unspecified F32.9 [address]00565100[address] [id number] Jun, [facility] [address]00565100[place] [id number] Jun, [address] [id number][place] [id number] May, Supervision of high risk in first trimester O09.[address] [id number] May, Supervision of high risk in first [...] infection without hepatic coma, unspecified chronicity B19.[address] [id number] Apr, Cold sore B00.1 and Positive test Z32.[address] [id number] Apr, Positive test Z32.01 and Folliculitis L73.9 [place] [id number] [place] [address] [id number] Mar, Cutaneous abscess of other site L02.818 and Folliculitis L73.9 [place] [address] [place] [address] [id number] Dec, Well woman exam with routine gynecological exam Z01.419 ; High risk sexual behavior Z72.51 ; History of HPV infection Z86.19 and History of abnormal cervical Pap smear Z87.898 [place] [id number] [place] [id number]- [address] Jul, [place] [address] [id number]- [address] Jul, [facility] [id number] [place] [address]- [address] Jan, [facility] [address] 6[address]- [address] Jan, [facility] [address] [id number] [place] [address] Jan, [facility] [address] [id number] [place] [address] Jan, [facility] [address] [id number] [place] [address] Jan, [facility] [address] [id number] [place] [address] Jan, [facility] [address] [id number] [place] [address] Sep, [facility] [address] [id number] [place] [address] Sep, [facility] [address] [id number] [place] [address] Sep, [facility] [address] [id number] [place] [address] August, [facility] [address] [id number] [place] [address] August, [facility] [address] [id number] [place] [address] August, [facility] [address] [id number] [place] [address] Jul, [facility] [address] [id number], [place] [address] Feb, [facility] [place] [facility] [address] [id number] [place] [address] Feb, [facility] [place] [facility] [address] [id number] [place] [address] Dec, [facility] [place] [facility] [address] [id number] [place] [address] Oct, [facility] [place] [facility] [address] [id number], [place] [address] Sep, [facility] [address]00565100[place], [place] [address] Sep, [facility] [address]00565100[place], [place] [address] Jul, [facility] [address]00565100[place], [place] [address] Feb, [facility] [address]00565100[place], [place] [address] Jan, [facility] [address]00565100[place], [place] [address] Jan, [facility] [address]00565100[place], [place] [address] Jan, [facility] [address]00565100[place], [place] [address] Jan, [facility] [address]00565100[place], [place] [address] Oct, IMMUNIZATIONS No Known Immunizations SOCIAL HISTORY Never Assessed REASON FOR VISIT Medication request PLAN OF CARE VITAL SIGNS MEDICATIONS Medication Instructions Dosage Frequency Start Date End Date Duration Status Diflucan 150 MG 1 tablet Jul, Jul, 0 days Active RESULTS No Results [...]
--- OUTSIDE RECORDS SUMMARY | 2017-12-10 15:17 | XMS REPORT ---
Author Author ABENA MOSCOSO Organization [facility] Address [address] [place] [address] Care Team Providers Care Database Marketing Analyst Name Role Phone BETOCARLYLAVINIA ABENA Unavailable PROBLEMS Type Condition ICD9-CM Code TDL05-GP Code Onset Dates Condition Status SNOMED Code Problem History of herpes zoster Z86.19 Active 332170229444163 Problem Major depressive disorder, single episode, unspecified F32.9 Active 24490437 Problem Hepatitis C virus infection without hepatic coma, unspecified chronicity B19.20 Active 29263853 Problem Supervision of high risk due to social problems, antepartum O09.70 Active 719686570 Problem History of intravenous drug abuse Z87.898 Active 39835881954877079 Problem Bipolar disorder with depression F31.30 Active 70231648 Problem Other specified related conditions, third trimester O26.893 Active 82275279 Problem Heartburn R12 Active 12664116 Problem Drug use complicating in second trimester O99.322 Active 42731766 Problem Urinary tract infection during in second trimester, antepartum O23.42 Active 511748966 Problem Other mental disorders complicating , third trimester O99.343 Active 167596495 Problem Supervision of other high risk pregnancies, third trimester O09.893 Active 17356408 ALLERGIES No Known Allergies ENCOUNTERS Encounter Location Date Diagnosis [facility] [address] [facility] [id number][place] [id number] Oct, [facility] [id number], [place] [id number] Sep, Major depressive disorder, single episode, unspecified F32.9 [facility] [address] [id number], [place] [id number] Sep, [facility] [address] [id number], [place] [id number] Sep, Supervision of other high risk pregnancies, [...] Heartburn R12 and Encounter for immunization Z23 [address] [id number], [place] [id number] Sep, Supervision of other high risk pregnancies, third trimester O09.893 [facility] [id number] [place] [id number] Sep, [facility] [id number] [place] [address] [id number] Sep, [facility] [id number], [place] [id number] Sep, Supervision of other high risk pregnancies, third trimester O09.893 ; Other mental disorders complicating , third trimester O99.343 ; Supervision of high risk due to social problems, antepartum O09.70 ; History of intravenous drug abuse Z87.898 ; Acute non-recurrent pansinusitis J01.40 ; Heartburn R12 ; Other specified related conditions, third trimester O26.893 and Elevated blood pressure reading R03.0 [facility] [address] [id number] [address] August, [facility] [id number], [place] [id number] August, [facility] [id number], [place] [id number] August, Supervision of other high risk pregnancies, second trimester O09.892 ; Supervision of other high risk pregnancies, third trimester O09.893 ; High risk sexual behavior Z72.51 ; Other mental disorders complicating , third trimester O99.343 ; Supervision of high risk due to social problems, antepartum O09.70 and Hepatitis C virus infection without hepatic coma, unspecified chronicity B19.20 [facility] [address] [facility] [id number], [place] [id number] August, Major depressive disorder, single episode, unspecified F32.9 [facility] [id number], [place] [id number] August, Vaginal leukorrhea N89.8 [facility] [address]00565100[place], [place] [id number] August, [facility] [address]00565100[place], [place] [id number] August, Supervision of other high risk pregnancies, second trimester O09.892 [address] [place] [address] [id number] Jul, [facility] [address]00565100[place], [place] [id number] Jul, Supervision of high risk in first [...] Major depressive disorder, single episode, unspecified F32.[address] [id number], [place] [id number] Jun, [place] [address] [facility] [id number][place] [id number] Jun, [facility] [address] [id number], [place] [id number] May, Supervision of high risk in first trimester O09.[address] [id number], [place] [id number] May, Supervision of high risk in first [...] without hepatic coma, unspecified chronicity B19.[address] [id number] Apr, 2017 Cold sore B00.1 and Positive test Z32.[address] [id number] Apr, 2017 Positive test Z32.01 and Folliculitis L73.[address] [id number] Mar, Cutaneous abscess of other site L02.818 and Folliculitis L73.[address] [id number] Dec, Well woman exam with routine gynecological exam Z01.419 ; High risk sexual behavior Z72.51 ; History of HPV infection Z86.19 and History of abnormal cervical Pap smear Z87.898 [facility] [id number] [place] [address]- [address] 14 Jul, 2014 [facility] [id number] [place] [address] [id number]- [address] Jul, [facility] [address] [id number]- [address] Jan, [facility] [address] [id number]- 4787 Jan, [facility] [address] [id number]- 7724 Jan, [facility] [address] 104744- [address] Jan, [facility] [address] [place] [address]- [address] Jan, [facility] [address] [id number] [place] [address]- [address]69 Jan, [facility] [address] [id number], [place] [address]- [address] Sep, [facility] [address] [id number] [place] [address]- 85[address] Sep, [facility] [address] [id number] [place] [address]- 7686 Sep, [facility] [address] [id number] [place] [address]- [address] August, [facility] [address] [id number] [place] [address]- [address] August, [facility] [address] [id number] [place] [address]- [address] August, [facility] [address] [id number] [place] [address]- 269[address] Jul, [facility] [address] [id number] [place] [address]- [address]2 Feb, [facility] [address] [id number] [place] [address]- 6[address] Feb, [facility] [address] [id number] [place] [address]- [address] Dec, [facility] [place] [facility] [address] [id number], [place] [address]- 77[address] Oct, [facility] [place] [facility] [address] [id number] [place] [address]- 9[address] Sep, [facility] [place] [facility] [address] [id number] [place] [address]- 8237 Sep, [facility] [address] [id number], [place] [address]- [address] Jul, [facility] [place] [facility] [address] [facility] [id number], [place] [address]- [address] Feb, [facility] [address] [id number], [place] [address]- [address] Jan, [facility] [address] [id number], [place] [address]- 7036 Jan, [facility] [address] [id number], [place] [address]- 46[address] Jan, [facility] [address] [facility] [id number], [place] [address]- 94[address] Jan, [facility] [address] [facility] [id number], [place] [address]- [address] Oct, IMMUNIZATIONS No Known Immunizations SOCIAL HISTORY Never Assessed REASON FOR VISIT OB-intake Sulaiman DEL ROSARIO PLAN OF CARE Activity Details Follow Up 4 Weeks, 3-4 weeks Reason: VITAL SIGNS Height 66 in 2017-05-30 Weight 125.8 lbs 2017-05-30 Temperature 97.8 degrees Fahrenheit 2017-05-30 Heart Rate 88 bpm 2017-05-30 Respiratory Rate 16 2017-05-30 BMI 20.305 kg/m2 2017-05-30 Blood pressure systolic 110 mmHg 2017-05-30 Blood pressure diastolic 68 mmHg 2017-05-30 MEDICATIONS Medication Instructions Dosage Frequency Start Date End Date Duration Status Acyclovir 5 % Externally Five times a day 1 application to affected area Apr, 4 day(s) Not-Taking Zoloft 50 mg Orally Once a day 1/2 tab x7 days, 1 tab x7 days, 1.5 tab x7 days, 2 tabs daily 24h May, 30 day(s) Active Classic 28-0.8 MG Orally Once a day as directed 24h May, 30 days Active RESULTS No Results PROCEDURES Procedure Date Ordered Result Body Site DRUG TEST PRSMV DIR OPT OBS May 30, 2017 LAB NOT BILLED BY [facility] May 30, 2017 INSTRUCTIONS MEDICATIONS ADMINISTERED No Known Medications MEDICAL (GENERAL) HISTORY Type Description Date Medical History hepatitis C Medical History HPV-had to have laser surgery for warts Medical History HX of shingles on face Medical History Herpes zoster without mention of complication Surgical History Laser surgery for genital warts age 16
--- OUTSIDE RECORDS SUMMARY | 2017-12-10 15:17 | XMS REPORT ---
Author Author ABENA MOSCOSO Organization [facility] Address [address] [place] [address] Care Team Providers Care Sample Processor Name Role Phone BETOCARLYLAVINIA ABENA Unavailable PROBLEMS Type Condition ICD9-CM Code HES65-CA Code Onset Dates Condition Status SNOMED Code Problem History of intravenous drug abuse Z87.898 Active 58880145545778320 Problem Drug use complicating in second trimester O99.322 Active 05788622 Problem Urinary tract infection during in second trimester, antepartum O23.42 Active 578815692 Problem Constipation, unspecified constipation type K59.00 Active 70555191 Problem Encounter for screening for Streptococcus B Z36.85 Active 165401252 Problem Other mental disorders complicating , third trimester O99.343 Active 429223080 Problem Supervision of other high risk pregnancies, third trimester O09.893 Active 80504972 Problem Heartburn R12 Active 46464112 Problem Other specified related conditions, third trimester O26.893 Active 59796993 Problem History of herpes zoster Z86.19 Active 193693681650733 Problem Hepatitis C virus infection without hepatic coma, unspecified chronicity B19.20 Active 84302613 Problem Major depressive disorder, single episode, unspecified F32.9 Active 73378019 Problem Bipolar disorder with depression F31.30 Active 58712179 Problem Supervision of high risk due to social problems, antepartum O09.70 Active [id number] ALLERGIES No Information ENCOUNTERS Encounter Location Date Diagnosis [facility] [address] [id number] [place] [id number] Dec, [facility] [address] [id number] [id number] Oct, [facility] [address] [id number][place] [id number] Oct, Supervision of other high risk pregnancies, [...] Z36.85 and Constipation, unspecified constipation type K59.[id number] [place] [address] [id number] Oct, [id number] [place] [address] [id number] Oct, Supervision of other high risk pregnancies, [...] Major depressive disorder, single episode, unspecified F32.9 [id number] [place] [address] [id number] Oct, [address] [id number] Sep, Major depressive disorder, single episode, unspecified F32.9 [id number] [place] [address] [id number] Sep, [id number] [place] [address] [id number] Sep, Supervision of other high risk pregnancies, [...] Heartburn R12 and Encounter for immunization Z23 [facility] [place] [id number] [facility] [address] [id number] [id number] 15 Sep, 2017 Supervision of other high risk pregnancies, third trimester O09.893 [facility] [id number], [place] [id number] Sep, [facility] [id number] [place] [address] [id number] Sep, [facility] [id number] [place] [address] [id number] Sep, Supervision of other high risk pregnancies, third trimester O09.893 ; Other mental disorders complicating , third trimester O99.343 ; Supervision of high risk due to social problems, antepartum O09.70 ; History of intravenous drug abuse Z87.898 ; Acute non-recurrent pansinusitis J01.40 ; Heartburn R12 ; Other specified related conditions, third trimester O26.893 and Elevated blood pressure reading R03.0 [facility] [address] [id number] [address] August, [facility] [id number] [place] [address] [id number] August, [facility] [id number] [place] [address] [id number] August, Supervision of other high risk pregnancies, second trimester O09.892 ; Supervision of other high risk pregnancies, third trimester O09.893 ; High risk sexual behavior Z72.51 ; Other mental disorders complicating , third trimester O99.343 ; Supervision of high risk due to social problems, antepartum O09.70 and Hepatitis C virus infection without hepatic coma, unspecified chronicity B19.20 [facility] [id number], [place] [id number] August, Major depressive disorder, single episode, unspecified F32.9 [facility] [id number] [place] [address] [id number] August, Vaginal leukorrhea N89.8 [facility] [id number] [place] [id number] August, [address] [id number][place] [id number] August, Supervision of other high risk pregnancies, second trimester O09.[address] [id number][place] [id number] Jul, [address] [id number], [place] [id number] Jul, Supervision of high risk in first [...] Major depressive disorder, single episode, unspecified F32.[address] [id number][place] [id number] Jun, [address] [id number][place] [id number] Jun, [address] [id number][place] [id number] May, Supervision of high risk in first trimester O09.[address] [id number], [place] [id number] May, Supervision of high risk in first [...] infection without hepatic coma, unspecified chronicity B19.[address] [id number], [place] [id number] Apr, Cold sore B00.1 and Positive test Z32.01 [facility] [id number] [place] [address] [id number] Apr, Positive test Z32.01 and Folliculitis L73.9 [facility] [address] [place] [address] [id number] Mar, Cutaneous abscess of other site L02.818 and Folliculitis L73.9 [facility] [address] [place] [address] [id number] 26 Dec, 2016 Well woman exam with routine gynecological exam Z01.419 ; High risk sexual behavior Z72.51 ; History of HPV infection Z86.19 and History of abnormal cervical Pap smear Z87.898 [facility] [id number] [place] [address] Jul, [facility] [address] [id number]- [address] Jul, [facility] [address] [address]- [address] Jan, [facility] [address] 784355- 245[address] Jan, [facility] [id number] [place] [address]- [address] Jan, [facility] [id number] [place] [address]- [address] Jan, [facility] [id number] [place] [address]- [address] Jan, [facility] [address] [address] Jan, [facility] [id number] [place] [address] Sep, [facility] [address] [address] Sep, [facility] [place] [facility] [address] [id number] [place] [address] Sep, [facility] [place] [facility] [address] [id number] [place] [address] August, [facility] [place] [facility] [address] [id number] [place] [address] August, [facility] [place] [facility] [address] [id number] [place] [address] August, [facility] [place] [facility] [address] [id number] [place] [address] Jul, [facility] [place] [facility] [address] [id number] [place] [address] 94[address] Feb, [facility] [place] [facility] [address] [id number] [place] [address]- [address] Feb, [facility] [place] [facility] [address] [id number] [place] [address]- [address] Dec, [facility] [place] [facility] [address] [id number] [place] [address] Oct, [facility] [place] [facility] [address] [id number] [place] [address]- [address] Sep, [facility] [place] [facility] [address] [id number] [place] [address]- [address] Sep, [facility] [place] [facility] [address] [id number] [place] [address] 49[address] Jul, [facility] [place] [facility] [address] [id number] [place] [address]- [address] Feb, [facility] [place] [facility] [address] [id number] [place] [address]- [address] Jan, [facility] [place] [facility] [address] [id number] [place] [address]- 34[address] Jan, [facility] [place] [facility] [address] [facility] [id number] [place] [address] Jan, [facility] [address] [facility] [id number] [place] [address] Jan, [facility] [address] [facility] [id number] [place] [address] Oct, IMMUNIZATIONS No Known Immunizations SOCIAL HISTORY [...]
--- OUTSIDE RECORDS SUMMARY | 2017-12-10 15:17 | XMS REPORT ---
Author Author ABENA MOSCOSO Organization [facility] Address [address] [place] [address] Care Team Providers Care Door To Door Selling Distributor Name Role Phone BETOCARLYLAVINIA ABENA Unavailable PROBLEMS Type Condition ICD9-CM Code XCI74-WR Code Onset Dates Condition Status SNOMED Code Problem History of herpes zoster Z86.19 Active [id number] Problem Major depressive disorder, single episode, unspecified F32.9 Active 24501096 Problem Hepatitis C virus infection without hepatic coma, unspecified chronicity B19.20 Active 43977665 Problem Supervision of high risk due to social problems, antepartum O09.70 Active 808508108 Problem History of intravenous drug abuse Z87.898 Active 92234092528333813 Problem Bipolar disorder with depression F31.30 Active 62623997 Problem Other specified related conditions, third trimester O26.893 Active 08718079 Problem Heartburn R12 Active 01828901 Problem Drug use complicating in second trimester O99.322 Active 77344843 Problem Urinary tract infection during in second trimester, antepartum O23.42 Active 136505745 Problem Other mental disorders complicating , third trimester O99.343 Active 729619386 Problem Supervision of other high risk pregnancies, third trimester O09.893 Active [id number] ALLERGIES No Information ENCOUNTERS Encounter Location Date Diagnosis [facility] [address] [facility] [id number] [id number] Oct, [facility] [address] [id number] Sep, Major depressive disorder, single episode, unspecified F32.9 [facility] [address] [id number], [place] [id number] Sep, [facility] [address] [id number], [place] [id number] Sep, Supervision of other high risk pregnancies, [...] Heartburn R12 and Encounter for immunization Z23 [address] [id number][place] [id number] Sep, Supervision of other high risk pregnancies, third trimester O09.893 [facility] [id number], [place] [id number] Sep, [facility] [id number] [place] [id number] Sep, [facility] [id number], [place] [id number] Sep, Supervision of other high risk pregnancies, third trimester O09.893 ; Other mental disorders complicating , third trimester O99.343 ; Supervision of high risk due to social problems, antepartum O09.70 ; History of intravenous drug abuse Z87.898 ; Acute non-recurrent pansinusitis J01.40 ; Heartburn R12 ; Other specified related conditions, third trimester O26.893 and Elevated blood pressure reading R03.0 [facility] [address] [facility] [id number][place] [address] August, [facility] [id number], [place] [id number] August, [facility] [id number], [place] [id number] August, Supervision of other high risk pregnancies, second trimester O09.892 ; Supervision of other high risk pregnancies, third trimester O09.893 ; High risk sexual behavior Z72.51 ; Other mental disorders complicating , third trimester O99.343 ; Supervision of high risk due to social problems, antepartum O09.70 and Hepatitis C virus infection without hepatic coma, unspecified chronicity B19.20 [facility] [address] [facility] [id number], [place] [id number] August, Major depressive disorder, single episode, unspecified F32.9 [facility] [id number], [place] [id number] August, Vaginal leukorrhea N89.8 [facility] [address]00565100[place] [id number] August, [facility] [address]00565100[place] [id number] August, Supervision of other high risk pregnancies, second trimester O09.[address] [id number] Jul, [facility] [address]00565100[place] [id number] Jul, Supervision of high risk in first [...] Major depressive disorder, single episode, unspecified F32.[address] [id number], [place] [id number] Jun, [facility] [address] [facility] [id number], [place] [address] Jun, [facility] [address] [id number], [place] [id number] May, Supervision of high risk in first trimester O09.91 [facility] [address] [id number][place] [id number] May, Supervision of high risk in first [...] infection without hepatic coma, unspecified chronicity B19.20 [id number] [address] [id number] 23 Apr, 2017 Cold sore B00.1 and Positive test Z32.[address] [id number] Apr, 2017 Positive test Z32.01 and Folliculitis L73.[address] [id number] Mar, Cutaneous abscess of other site L02.818 and Folliculitis L73.[address] [id number] Dec, Well woman exam with routine gynecological exam Z01.419 ; High risk sexual behavior Z72.51 ; History of HPV infection Z86.19 and History of abnormal cervical Pap smear Z87.898 [facility] [id number] [place] [address]- [address] 14 Jul, 2014 [facility] [id number] [place] [address] [id number]- 5096 Jul, [facility] [address] [id number]- 2070 Jan, [facility] [address] [id number]- 0389 Jan, [facility] [address] [id number]- 5853 Jan, [facility] [address] 613229- 6217 Jan, [facility] [address] [address]- [address] Jan, [facility] [address] [id number] [place] [address]- [address] Jan, [facility] [address] [facility] [id number], [place] [address]- [address] Sep, [facility] [address] [facility] [id number] [place] [address]- [address]23 Sep, [facility] [address] [id number] [place] [address]- 5649 Sep, [facility] [address] [id number] [address]- [address] August, [facility] [address] [facility] [id number] [place] [address]- 6[address] August, [facility] [address]00565100[place], [place] [address]- 8[address] August, [facility] [address] [facility] [id number] [place] [address]- 5748 Jul, [facility] [address] [id number], [place] [address]- [address]70 Feb, [facility] [address] [id number], [place] [address]- 0414 Feb, [facility] [address] [facility] [id number], [place] [address]- 1553 Dec, [facility] [place] [facility] [address] [id number], [place] [address]- 5568 Oct, [facility] [place] [facility] [address] [id number], [place] [address]- 7761 Sep, [facility] [place] [facility] [address] [facility] [id number][place] [address]- 6[address] Sep, [facility] [place] [facility] [address] [id number], [place] [address]- 7578 Jul, [facility] [place] [facility] [address] [facility] [id number], [place] [address]- 2546 Feb, [facility] [address] [id number], [place] [address]- 4133 Jan, [facility] [address]00565100[place], [place] [address]- 7[address] Jan, [facility] [address] [id number], [place] [address]- 1666 Jan, [facility] [address] [id number], [place] [address]- 4044 Jan, [facility] [address] [id number], [place] [address]- 4424 Oct, IMMUNIZATIONS No Known Immunizations SOCIAL HISTORY Never Assessed REASON FOR VISIT Please Contact Patient PLAN OF CARE VITAL SIGNS MEDICATIONS Unknown [...]
--- OUTSIDE RECORDS SUMMARY | 2017-12-10 15:17 | XMS REPORT ---
Author Author MARCELLO WHITEHEAD Organization [facility] Address [address] [place] [address] Care Team Providers Care Grill Attendant Name Role Phone MARCELLO WHITEHEAD Unavailable PROBLEMS Type Condition ICD9-CM Code [id number] Code Onset Dates Condition Status SNOMED Code Problem History of intravenous drug abuse Z87.898 Active 93595565820549293 Problem History of herpes zoster Z86.19 Active [id number] Problem Bipolar disorder with depression F31.30 Active 07263582 Problem Supervision of high risk due to social problems, antepartum O09.70 Active 988160618 Problem Supervision of other high risk pregnancies, second trimester O09.892 Active 72223131 Problem Other mental disorders complicating , second trimester O99.342 Active 516142818 Problem Major depressive disorder, single episode, unspecified F32.9 Active 58583639 Problem Hepatitis C virus infection without hepatic coma, unspecified chronicity B19.20 Active 65211909 Problem Drug use complicating in second trimester O99.322 Active 62310817 Problem Urinary tract infection during in second trimester, antepartum O23.42 Active 114623604 ALLERGIES No Known Allergies ENCOUNTERS Encounter Location Date Diagnosis [facility] [id number] [place] [address] [id number] August, [facility] [address] [place] [id number] [place] [address] [id number] August, [place] [address] [id number] [place] [address] [id number] August, Supervision of other high risk pregnancies, second trimester O09.892 [facility] [id number] [place] [address] [id number] Jul, [address] [place] [address] [id number] Jul, Supervision of high risk in first [...] Major depressive disorder, single episode, unspecified F32.9 [address] [place] [address] [id number] Jun, [place] [id number] [place] [address] [id number] Jun, [address] [id number] [id number] May, Supervision of high risk in first trimester O09.91 [address] [place] [address] [id number] May, Supervision of high risk in first [...] infection without hepatic coma, unspecified chronicity B19.20 [address] [id number] Apr, Cold sore B00.1 and Positive test Z32.01 [place] [id number] [place] [address] [id number] Apr, Positive test Z32.01 and Folliculitis L73.9 [place] [id number] [place] [address] [id number] Mar, Cutaneous abscess of other site L02.818 and Folliculitis L73.9 [facility] [id number] [id number] Dec, Well woman exam with routine gynecological exam Z01.419 ; High risk sexual behavior Z72.51 ; History of HPV infection Z86.19 and History of abnormal cervical Pap smear Z87.898 [facility] [address] [place] [address]- 1846 14 Jul, 2014 [facility] [address] [place] [address] 62664- 4136 Jul, [facility] [id number] [place] [address]21- 2276 Jan, [facility] [id number] [place] [address] 23605- 1336 Jan, [facility] [id number] [place] [address] 908207- 2216 Jan, [facility] [address] [place] [address] 968908- 2122 Jan, [facility] [id number] [place] [address] 650812- 1216 Jan, [facility] [address], [place] [address] Jan, [facility] [address], [place] [address] Sep, [facility] [address], [place] [address] 2546 Sep, [facility] [id number] [place] [address]993 2546 Sep, [facility] [address], [place] [address] 2546 August, [facility] [id number] [place] [address]- 1246 August, [facility] [address] [facility] [id number] [place] [address] 2546 August, [facility] [address] [facility] [id number], [place] [address] 8[address] Jul, [facility] [address] [facility] [id number], [place] [address] Feb, [facility] [address] [facility] [id number], [place] [address] Feb, [facility] [address] [facility] [id number] [place] [address] 7702 Dec, [facility] [address] [facility] [id number], [place] [address] Oct, [facility] [address] [facility] [id number], [place] [address] 7[address] Sep, [facility] [address] [facility] [id number], [place] [address] Sep, [facility] [address] [facility] [id number], [place] [address] 5[address] Jul, [facility] [address] [facility] [id number], [place] [address] Feb, [facility] [address] [place] [id number], [place] [address] Jan, [facility] [address] [facility] [id number], [place] [address] Jan, [facility] [address] [facility] [id number], [place] [address] Jan, [facility] [address] [facility] [id number], [place] [address] 49[address] Jan, [facility] [address] [place] [address] [id number], [place] [address]70 Oct, IMMUNIZATIONS No Known Immunizations SOCIAL HISTORY Never Assessed REASON FOR VISIT Wanting [employer], had one last year in [place]-was abnormal. Having odorous discharge after sex. chastity [facility] PLAN OF CARE Activity Details Follow Up 1 Year, prn Reason:WWE and needs to make est care with the provider of her choice ( she is moving to [place]) Pending Test Th[facility] Pap and HPV mRNA E6/E7 VITAL SIGNS Height 66 in 2017-01-22 Weight 128.6 lbs 2017-01-22 Temperature 97.9 degrees Fahrenheit 2017-01-22 Heart Rate 84 bpm 2017-01-22 Respiratory Rate 16 2017-01-22 BMI 20.75 kg/m2 2017-01-22 Blood pressure systolic 128 mmHg 2017-01-22 Blood pressure diastolic 80 mmHg 2017-01-22 MEDICATIONS Unknown Medications RESULTS No Results PROCEDURES Procedure Date Ordered Result Body Site SPECIMEN HANDLING Jan 22, 2017 No Charge Jan 22, 2017 TRICHOMONAS ASSAY W/OPTIC Jan 22, 2017 Bacterial Vaginosis In House Jan 22, 2017 URINE TEST Jan 22, 2017 CULTURE, BACTERIA, OTHER Jan 22, 2017 INSTRUCTIONS MEDICATIONS ADMINISTERED No Known Medications MEDICAL (GENERAL) HISTORY Type Description Date Medical History hepatitis C Medical History HPV-had to have laser surgery for warts Medical History HX of shingles on face Medical History Herpes zoster without mention of complication Surgical History Laser surgery for genital warts age 16
--- OUTSIDE RECORDS SUMMARY | 2017-12-10 15:17 | XMS REPORT ---
Author Author ABENA MOSCOSO [facility] Address [address] [place] [address] Care Team Providers Care Exhibition Carver Name Role Phone ABENA MOSCOSO Unavailable PROBLEMS Type Condition ICD9-CM Code [id number] Code Onset Dates Condition Status SNOMED Code Problem Supervision of high risk due to social problems, antepartum O09.70 Active 956566774 Problem Urinary tract infection during in second trimester, antepartum O23.42 Active 444671387 Problem History of intravenous drug abuse Z87.898 Active 41912723544767086 Problem Bipolar disorder with depression F31.30 Active 70671839 Problem History of herpes zoster Z86.19 Active 763393340931462 Problem Hepatitis C virus infection without hepatic coma, unspecified chronicity B19.20 Active 65297094 Problem Major depressive disorder, single episode, unspecified F32.9 Active 74800154 Problem Encounter for screening for Streptococcus B Z36.85 Active 793400994 Problem Other specified related conditions, third trimester O26.893 Active 38325561 Problem Supervision of other high risk pregnancies, third trimester O09.893 Active 37972726 Problem Drug use complicating in second trimester O99.322 Active 66048457 Problem Heartburn R12 Active 48426506 Problem Other mental disorders complicating , third trimester O99.343 Active 081462004 ALLERGIES No Information ENCOUNTERS Encounter Location Date Diagnosis [facility] [address] [facility] [id number] [place] [id number] Oct, [facility] [address] [facility] [id number][place] [id number] Oct, [facility] [address] [facility] [id number][place] [id number] Oct, Supervision of other high risk pregnancies, [...] depressive disorder, single episode, unspecified F32.9 [address] [place] [address] [id number] Oct, [place] [id number] [place] [address] [id number] Sep, Major depressive disorder, single episode, unspecified F32.9 [place] [id number] [place] [address] [id number] Sep, [place] [id number] [place] [address] [id number] Sep, Supervision of other high risk pregnancies, [...] Heartburn R12 and Encounter for immunization Z23 [address] [id number] [id number] Sep, Supervision of other high risk pregnancies, third trimester O09.[address] [id number][place] [id number] Sep, [address] [place] [address] [id number] Sep, [place] [id number] [place] [address] [id number] Sep, Supervision of other high risk pregnancies, third trimester O09.893 ; Other mental disorders complicating , third trimester O99.343 ; Supervision of high risk due to social problems, antepartum O09.70 ; History of intravenous drug abuse Z87.898 ; Acute non-recurrent pansinusitis J01.40 ; Heartburn R12 ; Other specified related conditions, third trimester O26.893 and Elevated blood pressure reading R03.0 [facility] [address] [id number] [address] August, [facility] [address] [place] [id number] [id number] August, [facility] [id number] [place] [address] [id number] August, Supervision of other high risk pregnancies, second trimester O09.892 ; Supervision of other high risk pregnancies, third trimester O09.893 ; High risk sexual behavior Z72.51 ; Other mental disorders complicating , third trimester O99.343 ; Supervision of high risk due to social problems, antepartum O09.70 and Hepatitis C virus infection without hepatic coma, unspecified chronicity B19.20 [facility] [id number], [place] [id number] August, Major depressive disorder, single episode, unspecified F32.9 [facility] [id number] [place] [address] [id number] August, Vaginal leukorrhea N89.8 [facility] [address] [place] [address] [id number] August, [facility] [id number] [place] [address] [id number] August, Supervision of other high risk pregnancies, second trimester O09.892 [facility] [address] [place] [address] [id number] Jul, [facility] [id number] [place] [address] [id number] Jul, Supervision of high risk in first [...] depressive disorder, single episode, unspecified F32.9 [address] [id number] Jun, [address] [id number][place] [id number] Jun, [address] [id number][place] [id number] May, Supervision of high risk in first trimester O09.[id number] [place] [address] [id number] May, Supervision of high risk in first [...] infection without hepatic coma, unspecified chronicity B19.[address] [id number][place] [id number] Apr, Cold sore B00.1 and Positive test Z32.01 [address] [place] [address] [id number] Apr, Positive test Z32.01 and Folliculitis L73.9 [address] [place] [address] [id number] Mar, Cutaneous abscess of other site L02.818 and Folliculitis L73.9 [address] [place] [address] [id number] Dec, Well woman exam with routine gynecological exam Z01.419 ; High risk sexual behavior Z72.51 ; History of HPV infection Z86.19 and History of abnormal cervical Pap smear Z87.898 [facility] [address] [id number] [place] [address] Jul, [facility] [address] [id number] [place] [address]- [address] Jul, [facility] [address] [facility] [id number], [place] [address]- [address] Jan, [facility] [address] [id number], [place] [address]- 1465 Jan, [facility] [address] [id number] [place] [address]- 9063 Jan, [facility] [address] [id number], [place] [address]- 7015 Jan, [facility] [address] [facility] [id number] [place] [address]- [address] Jan, [facility] [address] [facility] [id number], [place] [address]- [address]339 Jan, [facility] [address] [facility] [id number], [place] [address]- 4[address] Sep, [facility] [address] [facility] [id number], [place] [address]- 52[address] Sep, [facility] [address] [facility] [id number], [place] [address]- 0917 Sep, [facility] [address] [facility] [id number], [place] [address]- 1286 August, [facility] [address] [facility] [id number], [place] [address]- 9646 August, [facility] [address] [facility] [id number], [place] [address]- 6231 August, [facility] [address] [facility] [id number][place] [address]- 6910 Jul, [facility] [address]00565100[place], [place] [address] Feb, [facility] [address]00565100[place], [place] [address]- 2546 Feb, [facility] [address]00565100[place], [place] [address]- 2546 Dec, [facility] [address]00565100[place], [place] [address]- 2546 Oct, [facility] [address]00565100[place], [place] [address]- 2546 Sep, [facility] [address] [place] [address]- 2546 Sep, [facility] [address]00565100[place], [place] [address]- 2546 Jul, [facility] [address]00565100[place], [place] [address]- 2546 Feb, [facility] [address]00565100[place], [place] [address]- 68[address] Jan, [facility] [address]00565100[place], [place] [address]- 3[address] Jan, [facility] [address]00565100[place], [place] [address] 2546 Jan, [facility] [address] [place] [id number], [place] [address]- 2546 Jan, [facility] [address]65[address], [place] [address]- 2546 Oct, IMMUNIZATIONS No Known Immunizations SOCIAL [...]
--- OUTSIDE RECORDS SUMMARY | 2017-12-10 15:18 | XMS REPORT ---
Author Author MARCELLO WHITEHEAD Organization [facility] Address [address] [place] [address] Care Team Providers Care Envelope Machine Operator Name Role Phone MARCELLO WHITEHEAD Unavailable PROBLEMS Type Condition ICD9-CM Code PUC78-AO Code Onset Dates Condition Status SNOMED Code Problem History of herpes zoster Z86.19 Active [id number] Problem Major depressive disorder, single episode, unspecified F32.9 Active 14769962 Problem Hepatitis C virus infection without hepatic coma, unspecified chronicity B19.20 Active 07568560 Problem Supervision of high risk due to social problems, antepartum O09.70 Active 646472393 Problem History of intravenous drug abuse Z87.898 Active [id number] Problem Bipolar disorder with depression F31.30 Active 64312647 Problem Supervision of other high risk pregnancies, third trimester O09.893 Active 66912856 Problem Other mental disorders complicating , third trimester O99.343 Active 735087001 Problem Drug use complicating in second trimester O99.322 Active 07277055 Problem Urinary tract infection during in second trimester, antepartum O23.42 Active 770819807 Problem Other mental disorders complicating , second trimester O99.342 Active 040048109 Problem Supervision of other high risk pregnancies, second trimester O09.892 Active 66456552 ALLERGIES No Known Allergies ENCOUNTERS Encounter Location Date Diagnosis [facility] [address] [facility] [id number] [place] [id number] Sep, [facility] [address] [facility] [address] [id number] [place] [address] August, [facility] [address] [facility] [id number] [place] [id number] August, [facility] [address] [facility] [id number] [place] [id number] August, Supervision of other high risk pregnancies, second trimester O09.892 ; Supervision of other high risk pregnancies, third trimester O09.893 ; High risk sexual behavior Z72.51 ; Other mental disorders complicating , third trimester O99.343 ; Supervision of high risk due to social problems, antepartum O09.70 and Hepatitis C virus infection without hepatic coma, unspecified chronicity B19.20 [place] [id number] [place] [id number] August, Major depressive disorder, single episode, unspecified F32.9 [facility] [id number] [place] [id number] August, Vaginal leukorrhea N89.8 [facility] [id number] [place] [address] [id number] August, [facility] [id number] [place] [address] [id number] August, Supervision of other high risk pregnancies, second trimester O09.892 [facility] [id number] [place] [address] [id number] Jul, [facility] [id number] [place] [address] [id number] Jul, Supervision of high risk in first [...] Major depressive disorder, single episode, unspecified F32.9 [address]00565100[place] [phone] Jun, [facility] [id number] [place] [id number] Jun, [address] [id number] [id number] May, 2017 Supervision of high risk in first trimester O09.91 [place] [id number] [place] [id number] May, Supervision of high risk in first [...] infection without hepatic coma, unspecified chronicity B19.20 [place] [id number] [place] [address] [id number] Apr, Cold sore B00.1 and Positive test Z32.01 [place] [id number] [place] [address] [id number] Apr, Positive test Z32.01 and Folliculitis L73.9 [place] [id number] [place] [address] [id number] Mar, Cutaneous abscess of other site L02.818 and Folliculitis L73.9 [place] [address] [place] [address] [id number] Dec, Well woman exam with routine gynecological exam Z01.419 ; High risk sexual behavior Z72.51 ; History of HPV infection Z86.19 and History of abnormal cervical Pap smear Z87.898 [facility] [id number] [place] [id number] Jul, [facility] [address] [id number]- [address] Jul, [facility] [id number] [place] [address]- [address] Jan, [facility] [address] [id number]- [address] Jan, [facility] [address] [id number] [place] [address] Jan, [facility] [place] [facility] [address] [id number] [place] [address] Jan, [facility] [place] [facility] [address] [id number] [place] [address] Jan, [facility] [place] [facility] [address] [id number] [place] [address] Jan, [facility] [place] [facility] [address] [id number] [place] [address] Sep, [facility] [place] [facility] [address] [id number] [place] [address] Sep, [facility] [place] [facility] [address] [id number] [place] [address] Sep, [facility] [place] [facility] [address] [id number] [place] [address] August, [facility] [place] [facility] [address] [id number] [place] [address] August, [facility] [place] [facility] [address] [id number] [place] [address] August, [facility] [place] [facility] [address] [id number] [place] [address] Jul, [facility] [place] [facility] [address] [id number] [place] [address] Feb, [facility] [place] [facility] [address] [id number] [place] [address] Feb, [facility] [place] [facility] [address] [id number] [place] [address] Dec, [facility] [place] [facility] [address] [id number] [place] [address] Oct, [facility] [place] [facility] [address] [id number] [address] Sep, [facility] [address] [id number] [address] Sep, [facility] [address]00565100[place] [address] Jul, [facility] [address] [id number] [address] Feb, [facility] [address]00565100[place] [address] Jan, [facility] [address]00565100[place] [address] Jan, [facility] [address]00565100[place] [address] Jan, [facility] [address]00565100[place] [address] Jan, [facility] [address] [facility] [id number] [place] [address] Oct, IMMUNIZATIONS No Known Immunizations SOCIAL HISTORY Never Assessed REASON FOR VISIT Vaginal external cyst, has drainage, noticed about 3-4 days ago Sulaiman DEL ROSARIO PLAN OF CARE Activity Details Follow Up prn if not improving Reason: VITAL SIGNS Height 66 in 2017-04-02 Weight 124.1 lbs 2017-04-02 Temperature 96.9 degrees Fahrenheit 2017-04-02 Heart Rate 80 bpm 2017-04-02 Respiratory Rate 16 2017-04-02 BMI 20.03 kg/m2 2017-04-02 Blood pressure systolic 124 mmHg 2017-04-02 Blood pressure diastolic 72 mmHg 2017-04-02 MEDICATIONS Medication Instructions Dosage Frequency Start Date End Date Duration Status Keflex 500 mg Orally every 12 hrs 1 capsule 12h Mar, Mar, 10 day(s) Active RESULTS No Results PROCEDURES Procedure Date Ordered Result Body Site CULTURE BACTERIA ANAEROBIC Apr 02, 2017 CULTURE, BACTERIA, OTHER Apr 02, 2017 INSTRUCTIONS MEDICATIONS ADMINISTERED No Known Medications MEDICAL (GENERAL) HISTORY Type Description Date Medical History hepatitis C Medical History HPV-had to have laser surgery for warts Medical History HX of shingles on face Medical History Herpes zoster without mention of complication Surgical History Laser surgery for genital warts age 16
--- OUTSIDE RECORDS SUMMARY | 2017-12-10 15:18 | XMS REPORT ---
Author Author MARCELLO WHITEHEAD Organization [facility] Address [address] [place] [address] Care Team Providers Care Oncologist Name Role Phone MARCELLO WHITEHEAD Unavailable PROBLEMS Type Condition ICD9-CM Code RFP47-LQ Code Onset Dates Condition Status SNOMED Code Problem History of herpes zoster Z86.19 Active [id number] Problem Major depressive disorder, single episode, unspecified F32.9 Active 78618561 Problem Hepatitis C virus infection without hepatic coma, unspecified chronicity B19.20 Active 07394551 Problem Supervision of high risk due to social problems, antepartum O09.70 Active 799631896 Problem History of intravenous drug abuse Z87.898 Active 27990666580691051 Problem Bipolar disorder with depression F31.30 Active 52611466 Problem Other specified related conditions, third trimester O26.893 Active 23123072 Problem Heartburn R12 Active 51510387 Problem Drug use complicating in second trimester O99.322 Active 94735359 Problem Urinary tract infection during in second trimester, antepartum O23.42 Active 602018602 Problem Other mental disorders complicating , third trimester O99.343 Active 802808678 Problem Supervision of other high risk pregnancies, third trimester O09.893 Active 68134378 ALLERGIES No Known Allergies ENCOUNTERS Encounter Location Date Diagnosis [facility] [address] [facility] [id number][place] [id number] Sep, [facility] [address] [id number] [phone] Sep, Supervision of other high risk pregnancies, third trimester O09.893 [facility] [address] [facility] [id number][place] [id number] Sep, [address] [id number][place] [id number] Sep, [facility] [id number], [place] [address] Sep, Supervision of other high risk pregnancies, third trimester O09.893 ; Other mental disorders complicating , third trimester O99.343 ; Supervision of high risk due to social problems, antepartum O09.70 ; History of intravenous drug abuse Z87.898 ; Acute non-recurrent pansinusitis J01.40 ; Heartburn R12 ; Other specified related conditions, third trimester O26.893 and Elevated blood pressure reading R03.0 [facility] [address] [id number] [address] August, [facility] [id number] [place] [address] [id number] August, [facility] [id number] [place] [address] [id number] August, Supervision of other high risk pregnancies, second trimester O09.892 ; Supervision of other high risk pregnancies, third trimester O09.893 ; High risk sexual behavior Z72.51 ; Other mental disorders complicating , third trimester O99.343 ; Supervision of high risk due to social problems, antepartum O09.70 and Hepatitis C virus infection without hepatic coma, unspecified chronicity B19.20 [facility] [id number] [place] [address] [id number] August, Major depressive disorder, single episode, unspecified F32.9 [facility] [id number] [place] [address] [id number] August, Vaginal leukorrhea N89.8 [facility] [id number] [place] [address] [id number] August, [facility] [id number] [place] [address] [id number] August, Supervision of other high risk pregnancies, second trimester O09.892 [facility] [id number] [place] [address] [id number] Jul, [facility] [id number] [place] [address] [id number] 05 Apr, 2018 Supervision of high risk in first trimester [...] Major depressive disorder, single episode, unspecified F32.9 [address] [place] [address] [id number] Jun, [place] [id number] [place] [address] [id number] Jun, [address] [id number][place] [id number] May, Supervision of high risk in first trimester O09.91 [address] [place] [address] [id number] May, Supervision of high risk in first [...] infection without hepatic coma, unspecified chronicity B19.20 [address]00565[address] [id number] Apr, Cold sore B00.1 and Positive test Z32.01 [address] [place] [address] [id number] Apr, Positive test Z32.01 and Folliculitis L73.9 [place] [id number] [place] [address] [id number] Mar, Cutaneous abscess of other site L02.818 and Folliculitis L73.9 [facility] [address] [place] [address] [id number] [id number] Dec, Well woman exam with routine gynecological exam Z01.419 ; High risk sexual behavior Z72.51 ; History of HPV infection Z86.19 and History of abnormal cervical Pap smear Z87.898 [facility] [address]00565100[place] [address] Jul, 2014 [facility] [address]00565100[place] [address] Jul, [facility] [id number] [place] [address] Jan, [facility] [id number] [place] [address]- [address] Jan, [facility] [id number] [place] [address]- [address] Jan, [facility] [address]00565100[place] [address] 16[address] Jan, [facility] [address] [id number] [address]- [address] Jan, [facility] [address]00565100[place] [address]- [address] Jan, [facility] [address]00565100[place] [address] Sep, [facility] [address]00565100[place] [address]- 2546 Sep, [facility] [address] [address] [id number] [address]- [address] Sep, [facility] [address]00565100[place] [address] August, [facility] [id number] [place] [address] August, [facility] [address] [facility] [id number] [place] [address] August, [facility] [address] [facility] [id number] [place] [address] 0[address] Jul, [facility] [address] [facility] [id number] [place] [address] 2546 Feb, [facility] [address] [facility] [id number] [place] [address] Feb, [facility] [address] [facility] [id number] [place] [address]- [address] Dec, [facility] [address] [facility] [id number] [place] [address]- 6985 Oct, [facility] [address] [facility] [id number] [place] [address]- [address] Sep, [facility] [address] [facility] [id number] [place] [address] Sep, [facility] [address] [id number] [address] Jul, [facility] [address] [id number] [address]- 8[address] Feb, [facility] [address] [id number] [address] Jan, [facility] [address] [facility] [id number] [place] [address]- 4895 Jan, [facility] [address] [facility] [id number] [place] [address]- 8[address] Jan, [facility] [address] [facility] [id number] [place] [address]- 2776 Jan, [facility] [address] [id number] [address]- [address] Oct, IMMUNIZATIONS No Known Immunizations SOCIAL HISTORY Never Assessed REASON FOR VISIT Lump Follow Up, thinks she could be Yulisa RN PLAN OF CARE Activity Details Follow Up prn Reason: VITAL SIGNS Height 66 in 2017-04-30 Weight 130.6 lbs 2017-04-30 Temperature 98.0 degrees Fahrenheit 2017-04-30 Heart Rate 74 bpm 2017-04-30 Respiratory Rate 18 2017-04-30 BMI 21.08 kg/m2 2017-04-30 Blood pressure systolic 102 mmHg 2017-04-30 Blood pressure diastolic 62 mmHg 2017-04-30 MEDICATIONS Unknown Medications RESULTS Name Result Date Reference Range TEST, URINE (IN HOUSE) 2017-04-30 RESULTS positive Lot # [id number] Control positive Exp date 08/26/18 PROCEDURES Procedure Date Ordered Result Body Site URINE TEST Apr 30, 2017 INSTRUCTIONS MEDICATIONS ADMINISTERED No Known Medications MEDICAL (GENERAL) HISTORY Type Description Date Medical History hepatitis C Medical History HPV-had to have laser surgery for warts Medical History HX of shingles on face Medical History Herpes zoster without mention of complication Surgical History Laser surgery for genital warts age 16
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
[2017-12-10] MEDS ORDERED: D5 LR IV SOLUTION 1,000 ML IV SCH (15:37)
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
[2017-12-10] MEDS ORDERED: ONDANSETRON 4 MG/2 ML (SDV) Z0FRAN IVP PRN (15:45)
[2017-12-10] MEDS ORDERED: BUTORPHANOL INJ 2 MG/ML (STADOL) VIAL IV PRN (15:45)
[2017-12-10] MEDS ORDERED: TERBUTALINE INJ 1 MG/ML (BRETHINE) AMP SC NR (15:45)
[2017-12-10] MEDS ORDERED: OXYTOCIN/NORMAL SALINE 500 ML IV ONE (15:47)
[2017-12-10] MEDS ORDERED: D5 LR IV SOLUTION 1,000 ML IV ONE (15:47)
[2017-12-10 15:59] LABS: BASOPHILS % (AUTO) 0 % (0-10); EOSINOPHILS # (AUTO) 0.2 10^3/uL (0.0-0.3); EOSINOPHILS % (AUTO) 1 % (0-10); HEMATOCRIT 37 % (35-52); HEMOGLOBIN 13.1 G/DL (11.5-16.0); LYMPHOCYTES # (AUTO) 2.6 X 10^3 (1.0-4.0); LYMPHOCYTES % (AUTO) 17 % (12-44); MEAN CORPUSCULAR HEMOGLOBIN 32 PG (25-34); MEAN CORPUSCULAR HGB CONC 35 G/DL (32-36); MEAN CORPUSCULAR VOLUME 91 FL (80-99); MEAN PLATELET VOLUME 11.6 FL (7.4-10.4); MONOCYTES # (AUTO) 1.4 X 10^3 (0.0-1.0); MONOCYTES % (AUTO) 9 % (0-12); NEUTROPHILS # (AUTO) 10.9 X 10^3 (1.8-7.8); NEUTROPHILS % (AUTO) 72 % (42-75); PLATELET COUNT 183 10^3/uL (130-400); RED BLOOD COUNT 4.08 10^6/uL (4.35-5.85); RED CELL DISTRIBUTION WIDTH 13.4 % (10.0-14.5); WHITE BLOOD COUNT 15.1 10^3/uL (4.3-11.0)
[2017-12-10] MEDS: OXYTOCIN/NORMAL SALINE 500 ML IV SCH ×2 (16:00→20:12)
[2017-12-10] MEDS ORDERED: RANI150T46 PO (16:19)
[2017-12-10] MEDS ORDERED: SERT100T PO (16:19)
[2017-12-10] MEDS ORDERED: PREN1TAB86 PO (16:19)
[2017-12-10 16:31] LABS: BAND NEUTROPHILS 0 %; BASOPHILS % (MANUAL) 1 %; EOSINOPHILS % (MANUAL) 0 %; LYMPHOCYTES % (MANUAL) 14 %; MONOCYTES % (MANUAL) 3 %; NEUTROPHILS % (MANUAL) 82 %; RBC MORPH NORMAL
[2017-12-10 16:33] LABS: AMPHETAMINE SCREEN, URINE NEGATIVE (NEGATIVE); BARBITURATE SCREEN URINE NEGATIVE (NEGATIVE); BENZODIAZEPINES SCREEN URINE NEGATIVE (NEGATIVE); CANNABINOID SCREEN, URINE NEGATIVE (NEGATIVE); COCAINE SCREEN URINE NEGATIVE (NEGATIVE); METHADONE STAT NEGATIVE (NEGATIVE); METHAMPHETAMINE SCREEN URINE S NEGATIVE (NEGATIVE); OPIATE SCREEN URINE NEGATIVE (NEGATIVE); OXYCODONE STAT NEGATIVE (NEGATIVE); PROPOXYPHENE STAT NEGATIVE (NEGATIVE); TRICYCLIC ANTIDEPRESSANTS SCRE NEGATIVE (NEGATIVE)
[2017-12-10] MEDS ORDERED: SUFENTA 0.6MCG/ML BUPIVA 0.125 100 ML ONE (17:34)
[2017-12-10] MEDS ORDERED: LIDOCAINE PF 2% 5 ML (XYLOCAINE) VIAL ONE (17:42)
[2017-12-10] MEDS ORDERED: BUPIVACAINE 0.25% 30 ML (SENSORCAINE) VIAL ONE (17:42)
[2017-12-10] MEDS ORDERED: fentaNYL INJECTION 100 MCG/2 ML AMP ONE (17:42)
[2017-12-10] MEDS ORDERED: LACTATED RINGERS 1,000 ML IV ONE ×2 (18:12)
[2017-12-10] MEDS ORDERED: EPIDURAL (SUFENTA 0.6MCG/ML BUPIVA 0.125%) 100 ML BAG EPI PRN (18:15)
[2017-12-10] MEDS ORDERED: ONDANSETRON 4 MG/2 ML (SDV) Z0FRAN IV PRN (18:15)
[2017-12-10] MEDS ORDERED: NALOXONE 0.4 MG/ML 1 ML (NARCAN) VIAL IV PRN (18:15)
[2017-12-10 20:40] LABS: ALANINE AMINOTRANSFERASE 13 U/L (0-55); ALBUMIN 3.6 GM/DL (3.2-4.5); ALKALINE PHOSPHATASE 184 U/L (40-136); BILIRUBIN,TOTAL 0.3 MG/DL (0.1-1.0); BUN/CREATININE RATIO 16; CALCIUM 9.3 MG/DL (8.5-10.1); CARBON DIOXIDE 20 MMOL/L (21-32); CHLORIDE 104 MMOL/L (98-107); CREATININE SERUM 0.64 MG/DL (0.60-1.30); GFR ESTIMATED > 60; GLUCOSE 100 MG/DL (70-105); POTASSIUM 3.8 MMOL/L (3.6-5.0); SODIUM 134 MMOL/L (135-145); TOTAL PROTEIN 7.1 GM/DL (6.4-8.2); URIC ACID 4.9 MG/DL (2.6-7.2)
--- NOTE | 2017-12-10 20:49 | OB Labor & Delivery Record ---
Vag Delivery Note Vag Delivery Note Date of Delivery: 12/10/17 Preoperative Diagnosis: Norah Garcia is a 31 /Para 5 / 3,Gestational Age 38 3/7 wks with decreased movement, contractions and bloody show, Grade III Placenta, Hx of Hep C, Tobacco Abuse, Insufficient care Postoperative Diagnosis: Same Surgeon: ABENA MOSCOSO Anesthesia: Epidural Delivery Type: Spontaneous Vaginal Delivery Findings: Viable male infant, apgars 5, 6, 8, weight 6 lb 15.3 oz Lacerations: First degree perineal laceration Intact placenta with 3 vessel cord. No nuchal cord, body cord or shoulder dystocia Pitocin bolus for hemorrhage prophylaxis Estimated Blood Loss: 150 ml Complications: None Condition: Stable Description of Procedure: The patient is a 31 year old who presented for induction of labor secondary to decreased movement, grade III placenta observed on US with minimal movement, contractions, and advance dilation with bloody show at her office appointment earlier today. She was admitted and informed consent was obtained. Her labor course was unremarkable. She progressed rapidly to complete dilatation and began to push. She was then set up for delivery. The 's head was delivered atraumatically in the SANTANA position. The shoulders and remainder of the 's body were then delivered without difficulty. Upon delivery, the head was held below the level of the perineum and the mouth and nares were bulb suctioned. The cord was doubly clamped and cut and the infant was handed off to the pediatric staff. An intact placenta with 3-vessel cord delivered via Flori and there was found to be minimal bleeding.~ Vigorous fundal massage was performed and the fundus was found to be firm. IV oxytocin was given. Examination of the vagina and perineum revealed a first degree laceration repaired in the usual fashion with 3-0 vicryl suture. Following the repair, sponge, instrument and needle counts were correct. Mom and baby were both in stable condition in the labor suite. Vitals - Labs Vital Signs - I&O Vital Signs Date Time Temp Pulse Resp B/P (MAP) Pulse Ox O2 Delivery O2 Flow Rate FiO2 12/10/17 19:00 70 18 136/99 (111) 97 Room Air 12/10/17 18:45 97.6 75 18 136/78 (97) 98 Room Air 12/10/17 18:40 76 18 155/94 (114) 98 Room Air 12/10/17 18:35 83 18 145/98 (114) 99 Room Air 12/10/17 18:30 87 18 137/90 (106) 98 Room Air 12/10/17 18:15 75 18 155/97 (116) 97 Room Air 12/10/17 18:05 84 18 142/93 (109) 99 Room Air 12/10/17 18:02 80 18 154/93 (113) 99 Room Air 12/10/17 17:59 88 18 162/103 (122) 99 Room Air 12/10/17 17:56 80 18 151/97 (115) 99 Room Air 12/10/17 17:53 75 18 152/89 (110) Room Air 12/10/17 17:45 75 18 149/93 (111) Room Air 12/10/17 17:30 73 18 135/90 (105) Room Air 12/10/17 17:15 98.4 75 18 131/91 (104) Room Air 12/10/17 17:00 69 18 138/86 (103) Room Air 12/10/17 16:45 81 18 133/93 (106) Room Air 12/10/17 16:30 81 18 138/92 (107) Room Air 12/10/17 16:15 85 18 139/90 (106) Room Air 12/10/17 16:00 86 18 125/78 (94) Room Air 12/10/17 15:50 88 18 130/83 (99) Room Air 12/10/17 15:20 90 18 133/93 (106) Room Air 12/10/17 14:50 108 18 119/85 (96) Room Air Labs Laboratory Tests 12/10/17 15:35: White Blood Count 15.1H, Red Blood Count 4.08L, Hemoglobin 13.1, Hematocrit 37, Mean Corpuscular Volume 91, Mean Corpuscular Hemoglobin 32, Mean Corpuscular Hemoglobin Concent 35, Red Cell Distribution Width 13.4, Platelet Count 183, Mean Platelet Volume 11.6H, Neutrophils (%) (Auto) 72, Lymphocytes (%) (Auto) 17 , Monocytes (%) (Auto) 9, Eosinophils (%) (Auto) 1, Basophils (%) (Auto) 0, Neutrophils # (Auto) 10.9H, Lymphocytes # (Auto) 2.6, Monocytes # (Auto) 1.4H, Eosinophils # (Auto) 0.2, Basophils # (Auto) 0.0, Neutrophils % (Manual) 82, Lymphocytes % (Manual) 14, Monocytes % (Manual) 3, Eosinophils % (Manual) 0, Basophils % (Manual) 1, Band Neutrophils 0, Blood Morphology Comment NORMAL, Sodium Level 134L, Potassium Level 3.8, Chloride Level 104, Carbon Dioxide Level 20L, Anion Gap 10, Blood Urea Nitrogen 10, Creatinine 0.64, Estimat Glomerular Filtration Rate > 60, BUN/Creatinine Ratio 16, Glucose Level 100, Uric Acid 4.9, Calcium Level 9.3, Corrected Calcium 9.6, Total Bilirubin 0.3, Aspartate Amino Transf (AST/SGOT) 18, Alanine Aminotransferase (ALT/SGPT) 13, Alkaline Phosphatase 184H, Lactate Dehydrogenase 189, Total Protein 7.1, Albumin 3.6, Urine Opiates Screen NEGATIVE, Urine Oxycodone Screen NEGATIVE, Urine Methadone Screen NEGATIVE, Urine Propoxyphene Screen NEGATIVE, Urine Barbiturates Screen NEGATIVE, Ur Tricyclic Antidepressants Screen NEGATIVE, Urine Phencyclidine Screen NEGATIVE, Urine Amphetamines Screen NEGATIVE, Urine Methamphetamines Screen NEGATIVE, Urine Benzodiazepines Screen NEGATIVE, Urine Cocaine Screen NEGATIVE, Urine Cannabinoids Screen NEGATIVE ABENA MOSCOSO DO Dec 10, 2017 20:49
--- NOTE | 2017-12-10 20:55 | OB Labor & Delivery Record ---
L&D History Date of Service Date of Service: Dec 10, 2017 History Expected Date of Delivery: Dec 21, 2017 Gestational Age in Weeks: 38 Hx : 5 Hx Para: 3 Other History Hx of delivery, history of precip delivery, history of IV drug abuse, history of positive drug screen in (May and early July, negative since August and screened at every visit), Hep C positive, tobacco abuse, bipolar disorder Complications Events: Routine care (Insufficient care - first visit at ~9 weeks, second visit at 19 5/7, third visit at 26 3/7 wks and attended all visits after 26 wks) Operative Indications (Cesarea: N/A-Vaginal Delivery Intrapartal Events: None L&D Stage1 Stage One Onset of Labor - Date: Dec 10, 2017 Onset of Labor - Time: 15:00 Duration - Stage I: 4 hours 10 min Monitors and Tracing Monitor Mode: External Heart Rate: 120 Monitor Accelerations: Non-Uniform Monitor Decelerations: Variable Station: 0 Half-Way Variability: Average (6-10) Presentation: Vertex Vital Signs VS - Last 72 Hours, by Label 12/10/17 12/10/17 12/10/17 12/10/17 14:50 15:20 15:50 16:00 Pulse 108 90 88 86 Resp 18 18 B/P (MAP) 119/85 (96) 133/93 (106) 130/83 (99) 125/78 (94) O2 Delivery Room Air Room Air Room Air Room Air 12/10/17 12/10/17 12/10/17 12/10/17 16:15 16:30 16:45 17:00 Pulse 85 81 81 69 Resp 18 18 18 18 B/P (MAP) 139/90 (106) 138/92 (107) 133/93 (106) 138/86 (103) O2 Delivery Room Air Room Air Room Air Room Air 12/10/17 12/10/17 12/10/17 12/10/17 17:15 17:30 17:45 17:53 Temp 98.4 Pulse 75 73 75 75 Resp 18 18 18 18 B/P (MAP) 131/91 (104) 135/90 (105) 149/93 (111) 152/89 (110) O2 Delivery Room Air Room Air Room Air Room Air 8/12/10/17 12/10/17 12/10/17 17:56 17:59 18:02 18:05 Pulse 80 88 80 84 Resp 18 18 B/P (MAP) 151/97 (115) 162/103 (122) 154/93 (113) 142/93 (109) Pulse Ox 99 99 99 99 O2 Delivery Room Air Room Air Room Air Room Air 12/10/17 12/10/17 12/10/17 12/10/17 18:15 18:30 18:35 18:40 Pulse 75 87 83 76 Resp 18 18 B/P (MAP) 155/97 (116) 137/90 (106) 145/98 (114) 155/94 (114) Pulse Ox 97 98 99 98 O2 Delivery Room Air Room Air Room Air Room Air 12/10/17 12/10/17 18:45 19:00 Temp 97.6 Pulse 75 70 Resp 18 18 B/P (MAP) 136/78 (97) 136/99 (111) Pulse Ox 98 97 O2 Delivery Room Air Room Air Rupture of Membranes Spontaneous Ruture of Membrane: No Amniotic Membrane Rupture Time: 1700 Amniotic Membrane Fluid Desc.: Clear Vaginal Bleeding Description: Normal Show Induction/Anesthesia Epidural Cath Placement - Time: 1802 Progress/Notes AROM with amnihook at 1700 with return of moderate amount of clear fluid. FHR Category I, contractions moderate to palpation. L&D Stage2 Stage Two Stage II Date: Dec 10, 2017 Stage II Time: 19:20 Stage II Duration: 10 min Monitors and Tracing Monitor Mode: External Heart Rate: 120 Monitor Accelerations: Non-Uniform Monitor Decelerations: Variable Chief Engineer Waterworks Variability: Average (6-10) Position: Right Occiput Anterior Presentation: Vertex Cord Descript/Complications Cord Vessel Description: 3 Vessels Delivery Type Delivery Method: Spontaneous Vaginal Anterior Shoulder: Right Episiotomy/Perineal Laceration Laceraction(s)/Extensions: Yes Episiotomy Description: 1st degree Sutures Used: Vicryl Condition of Infant Delivery Delivery Date & Time: 12/10/17 1930 1 minute Comment: 5 5 minute Comment: 7 Notes 10 min 7 Condition of Condition of Infant: Living Exam: No Observed Abnormalities Resuscitation Resuscitation: Bag and Mask, Oxygen Blowby L&D Stage3 Stage Three Stage III Date: Dec 10, 2017 Stage III Time: 19:30 Stage III Duration: 10 min Pictocin Pitocin Administration mu/min: 8 Pitocin ml/hr: 8 Pitocin Administration Comment: PITOCIN INCREASED PER PROTOCOL. Placenta Delivery Placenta Delivery: Spontaneous Delivery Summary Summary Total Labor Time 4 hours 30 min Estimated blood loss (mL): 150 Attending at delivery: Dr. Tamez Condition of Delivery Examined: Cervix Examined, Uterus Explored Post Hemorrhage: No Condition of Mother Stable Condition of Infant (s) ABENA Flowers DO Dec 10, 2017 20:55
[2017-12-10] MEDS ORDERED: WITCH HAZEL(TUCKS) 40 EA JAR TOP PRN (21:15)
[2017-12-10] MEDS ORDERED: DIBUCAINE (NUPERCAINAL) 1% OINT 30 GM TOP PRN (21:15)
[2017-12-10] MEDS ORDERED: BENZOCAINE/MENTHOL (DERMOPLAST) 56 ML CAN TP PRN (21:15)
[2017-12-10] MEDS: IBUPROFEN 600 MG (MOTRIN) TAB PO PRN (21:16)
[2017-12-10] MEDS ORDERED: CATHETER FLUSH 10 ML SYR IV SCH ×2 (22:00)
[2017-12-11 00:05] VITALS: BP 118/82
[2017-12-11 03:31] VITALS: BP 106/64
[2017-12-11] MEDS: IBUPROFEN 600 MG (MOTRIN) TAB PO PRN ×4 (03:31→21:46)
[2017-12-11 05:33] LABS: BASOPHILS % (AUTO) 0 % (0-10); EOSINOPHILS # (AUTO) 0.2 10^3/uL (0.0-0.3); EOSINOPHILS % (AUTO) 1 % (0-10); HEMATOCRIT 35 % (35-52); HEMOGLOBIN 12.1 G/DL (11.5-16.0); LYMPHOCYTES # (AUTO) 2.8 X 10^3 (1.0-4.0); LYMPHOCYTES % (AUTO) 16 % (12-44); MEAN CORPUSCULAR HEMOGLOBIN 31 PG (25-34); MEAN CORPUSCULAR HGB CONC 35 G/DL (32-36); MEAN CORPUSCULAR VOLUME 91 FL (80-99); MEAN PLATELET VOLUME 11.4 FL (7.4-10.4); MONOCYTES # (AUTO) 1.5 X 10^3 (0.0-1.0); MONOCYTES % (AUTO) 9 % (0-12); NEUTROPHILS % (AUTO) 74 % (42-75); PLATELET COUNT 152 10^3/uL (130-400); RED BLOOD COUNT 3.85 10^6/uL (4.35-5.85); RED CELL DISTRIBUTION WIDTH 13.4 % (10.0-14.5); WHITE BLOOD COUNT 17.6 10^3/uL (4.3-11.0)
[2017-12-11 08:45] VITALS: BP 116/71
[2017-12-11] MEDS ORDERED: NON-FORMULARY MEDICATION 1 EA EA (Ranitidine HCl (Zantac) 150 MG) PO SCH (09:00)
[2017-12-11] MEDS ORDERED: NON-FORMULARY MEDICATION 1 EA EA (Prenatal Vit W-Ca,Fe,FA(<1 mg) (Prenatal Vitamins) 1 TAB PO SCH (09:00)
[2017-12-11] MEDS: SERTRALINE 100 MG (ZOLOFT) TAB PO SCH (09:01)
[2017-12-11] MEDS: DOCUSATE SODIUM 100 MG (COLACE) CAP PO SCH ×2 (09:01→21:46)
[2017-12-11] MEDS: PRENATAL VITAMIN 1 EA TAB PO SCH (09:01)
[2017-12-11] MEDS: FAMOTIDINE 20 MG (PEPCID) TABLET PO SCH (09:01)
[2017-12-11] MEDS: HYDROcodone/APAP 5 MG/325 MG (LORTAB) TAB PO PRN ×2 (09:04→21:46)
--- NOTE | 2017-12-11 11:09 | Anesthesia-Regional Post-Op ---
Regional Patient Condition Mental Status: Alert, Oriented x3 Circulation: Same as Pre-Op Headache: Absent Sensation: Full Recovery Motor Block: Absent Post Op Complications Complications None Follow Up Care/Instructions Patient Instructions None needed. Anesthesia/Patient Condition Patient is doing well, no complaints, stable vital signs, no apparent adverse anesthesia problems. No complications reported per nursing. SAVAGE STINSON CRNA Dec 11, 2017 11:09
[2017-12-11 12:10] VITALS: BP 119/81
--- NOTE | 2017-12-11 13:08 | Progress Note (SOAP) ---
Subjective Subjective/Events-last exam Afebrile, no acute events. Reports bleeding is decreasing. Denies dizziness, chest pain or shortness of breath. Review of Systems Date Seen by Provider: Dec 11, 2017 Time Seen by Provider: 09:30 Objective Exam Last Set of Vital Signs Vital Signs Date Time Temp Pulse Resp B/P (MAP) Pulse Ox O2 Delivery O2 Flow Rate FiO2 12/11/17 12:10 97.9 72 18 119/81 (94) 98 Room Air Capillary Refill : I&O Intake and Output 12/11/17 00:00 Intake Total 1850 ml Balance 1850 ml Intake IV Total 1850 ml Daily Weight Change No General: Alert, No Acute Distress Lungs: Clear to Auscultation, Normal Air Movement Heart: Regular Rate, No Murmurs Abdomen: Other (fundus firm below umbilicus, non-tender) Psych/Mental Status: Mental Status NL Results/Procedures Lab Laboratory Tests 12/10/17 15:35: White Blood Count 15.1H, Red Blood Count 4.08L, Hemoglobin 13.1, Hematocrit 37, Mean Corpuscular Volume 91, Mean Corpuscular Hemoglobin 32, Mean Corpuscular Hemoglobin Concent 35, Red Cell Distribution Width 13.4, Platelet Count 183, Mean Platelet Volume 11.6H, Neutrophils (%) (Auto) 72, Lymphocytes (%) (Auto) 17 , Monocytes (%) (Auto) 9, Eosinophils (%) (Auto) 1, Basophils (%) (Auto) 0, Neutrophils # (Auto) 10.9H, Lymphocytes # (Auto) 2.6, Monocytes # (Auto) 1.4H, Eosinophils # (Auto) 0.2, Basophils # (Auto) 0.0, Neutrophils % (Manual) 82, Lymphocytes % (Manual) 14, Monocytes % (Manual) 3, Eosinophils % (Manual) 0, Basophils % (Manual) 1, Band Neutrophils 0, Blood Morphology Comment NORMAL, Urine Protein 10, Urine Creatinine 83, Urine Protein/Creatinine Ratio 0.12, Sodium Level 134L, Potassium Level 3.8, Chloride Level 104, Carbon Dioxide Level 20L, Anion Gap 10, Blood Urea Nitrogen 10, Creatinine 0.64, Estimat Glomerular Filtration Rate > 60, BUN/Creatinine Ratio 16, Glucose Level 100, Uric Acid 4.9, Calcium Level 9.3, Corrected Calcium 9.6, Total Bilirubin 0.3, Aspartate Amino Transf (AST/SGOT) 18, Alanine Aminotransferase (ALT/SGPT) 13, Alkaline Phosphatase 184H, Lactate Dehydrogenase 189, Total Protein 7.1, Albumin 3.6, Urine Opiates Screen NEGATIVE, Urine Oxycodone Screen NEGATIVE, Urine Methadone Screen NEGATIVE, Urine Propoxyphene Screen NEGATIVE, Urine Barbiturates Screen NEGATIVE, Ur Tricyclic Antidepressants Screen NEGATIVE, Urine Phencyclidine Screen NEGATIVE, Urine Amphetamines Screen NEGATIVE, Urine Methamphetamines Screen NEGATIVE, Urine Benzodiazepines Screen NEGATIVE, Urine Cocaine Screen NEGATIVE, Urine Cannabinoids Screen NEGATIVE 12/11/17 05:20: White Blood Count 17.6H, Red Blood Count 3.85L, Hemoglobin 12.1, Hematocrit 35, Mean Corpuscular Volume 91, Mean Corpuscular Hemoglobin 31, Mean Corpuscular Hemoglobin Concent 35, Red Cell Distribution Width 13.4, Platelet Count 152, Mean Platelet Volume 11.4H, Neutrophils (%) (Auto) 74, Lymphocytes (%) (Auto) 16 , Monocytes (%) (Auto) 9, Eosinophils (%) (Auto) 1, Basophils (%) (Auto) 0, Neutrophils # (Auto) 13.0H, Lymphocytes # (Auto) 2.8, Monocytes # (Auto) 1.5H, Eosinophils # (Auto) 0.2, Basophils # (Auto) 0.0 Assessment/Plan Assessment/Plan Assessment & Plan 31 yo G5 now P4 s/p spontaneous vaginal delivery after IOL for possible IUGR with first degree perineal laceration. Blood type A+, rubella immune. Hep C positive with history of substance use early in . director of therapy services consulted Routine care Clinical Quality Measures DVT/VTE Risk/Contraindication: Risk Factor Score Per Nursin RFS Level Per Nursing on Admit: 2=Moderate GUS CHA MD Dec 11, 2017 1:08 pm
[2017-12-11] MEDS ORDERED: IBUP-844 PO (15:19)
[2017-12-11 16:00] VITALS: BP 110/70
[2017-12-11 20:00] VITALS: BP 119/72
[2017-12-12 03:25] VITALS: BP 103/66
[2017-12-12] MEDS: IBUPROFEN 600 MG (MOTRIN) TAB PO PRN ×3 (03:25→16:00)
[2017-12-12 09:00] VITALS: BP 121/82
[2017-12-12] MEDS: DOCUSATE SODIUM 100 MG (COLACE) CAP PO SCH (09:09)
[2017-12-12] MEDS: SERTRALINE 100 MG (ZOLOFT) TAB PO SCH (09:09)
[2017-12-12] MEDS: PRENATAL VITAMIN 1 EA TAB PO SCH (09:09)
[2017-12-12] MEDS: FAMOTIDINE 20 MG (PEPCID) TABLET PO SCH (09:10)
--- NOTE | 2017-12-12 11:44 | Discharge Summary ---
Diagnosis/Chief Complaint Date of Admission Dec 10, 2017 at 3:08 pm Date of Discharge Dec 12, 2017 Admission Diagnosis Admission Diagnosis Induction of Labor 38 weeks gestation High risk due to social factors Supervision of with insufficient care in first and second trimester Hx of drug abuse Hx of IV drug use Tobacco Abuse complicating Hepatitic C, Hep C Exposure to Fetus Uterine Size/Date Discrepancy Grade III Placenta Decreased Movement Hx of labor and delivery Discharge Diagnosis s/p uncomplicated vaginal delivery -Uncomplicated course, no anemia Hx of drug abuse, Hx of IV drug use -social services manager consulted, no concerns at this time Hepatitic C -Follow up outpatient Chief Complaint/HPI Chief Complaint/HPI 31 yo female admitted for IOL due to concern for SGA, grade 3 placenta. Discharge Summary-Simple/Stand Discharge Physical Examination Allergies: Coded Allergies: NKANo Known Allergies (Verified Allergy, Unknown, 10/24/06) Vitals & I&Os Vital Sign - Last 12Hours Date Time Temp Pulse Resp B/P (MAP) Pulse Ox O2 Delivery O2 Flow Rate FiO2 12/12/17 09:00 98.1 78 18 121/82 (95) 100 Room Air General Appearance: Alert, No Acute Distress Respiratory: Clear to Auscultation, Normal Air Movement Abdominal: Other (fundus firm below umbilicus) Neuro: Normal Speech Psych/Mental Status: Mental Status NL Hospital Course See final discharge diagnosis. Labs Laboratory Tests Test 12/10/17 15:35 12/11/17 05:20 Range/Units White Blood Count 15.1 H 17.6 H 4.3-11.0 10^3/uL Red Blood Count 4.08 L 3.85 L 4.35-5.85 10^6/uL Hemoglobin 13.1 12.1 11.5-16.0 G/DL Hematocrit 37 35 35-52 % Mean Corpuscular Volume 91 91 80-99 FL Mean Corpuscular Hemoglobin 32 31 25-34 PG Mean Corpuscular Hemoglobin Concent 35 35 32-36 G/DL Red Cell Distribution Width 13.4 13.4 10.0-14.5 % Platelet Count 183 152 130-400 10^3/uL Mean Platelet Volume 11.6 H 11.4 H 7.4-10.4 FL Neutrophils (%) (Auto) 72 74 42-75 % Lymphocytes (%) (Auto) 17 16 12-44 % Monocytes (%) (Auto) 9 9 0-12 % Eosinophils (%) (Auto) 1 1 0-10 % Basophils (%) (Auto) 0 0 0-10 % Neutrophils # (Auto) 10.9 H 13.0 H 1.8-7.8 X 10^3 Lymphocytes # (Auto) 2.6 2.8 1.0-4.0 X 10^3 Monocytes # (Auto) 1.4 H 1.5 H 0.0-1.0 X 10^3 Eosinophils # (Auto) 0.2 0.2 0.0-0.3 10^3/uL Basophils # (Auto) 0.0 0.0 0.0-0.1 10^3/uL Neutrophils % (Manual) 82 % Lymphocytes % (Manual) 14 % Monocytes % (Manual) 3 % Eosinophils % (Manual) 0 % Basophils % (Manual) 1 % Band Neutrophils 0 % Blood Morphology Comment NORMAL Urine Protein 10 6-12 MG/DL Urine Creatinine 83 30-125 MG/DL Urine Protein/Creatinine Ratio 0.12 Sodium Level 134 L 135-145 MMOL/L Potassium Level 3.8 3.6-5.0 MMOL/L Chloride Level 104 98-107 MMOL/L Carbon Dioxide Level 20 L 21-32 MMOL/L Anion Gap 10 5-14 MMOL/L Blood Urea Nitrogen 10 7-18 MG/DL Creatinine 0.64 0.60-1.30 MG/DL Estimat Glomerular Filtration Rate > 60 BUN/Creatinine Ratio 16 Glucose Level 100 70-105 MG/DL Uric Acid 4.9 2.6-7.2 MG/DL Calcium Level 9.3 8.5-10.1 MG/DL Corrected Calcium 9.6 8.5-10.1 MG/DL Total Bilirubin 0.3 0.1-1.0 MG/DL Aspartate Amino Transf (AST/SGOT) 18 5-34 U/L Alanine Aminotransferase (ALT/SGPT) 13 0-55 U/L Alkaline Phosphatase 184 H 40-136 U/L Lactate Dehydrogenase 189 125-220 U/L Total Protein 7.1 6.4-8.2 GM/DL Albumin 3.6 3.2-4.5 GM/DL Urine Opiates Screen NEGATIVE NEGATIVE Urine Oxycodone Screen NEGATIVE NEGATIVE Urine Methadone Screen NEGATIVE NEGATIVE Urine Propoxyphene Screen NEGATIVE NEGATIVE Urine Barbiturates Screen NEGATIVE NEGATIVE Ur Tricyclic Antidepressants Screen NEGATIVE NEGATIVE Urine Phencyclidine Screen NEGATIVE NEGATIVE Urine Amphetamines Screen NEGATIVE NEGATIVE Urine Methamphetamines Screen NEGATIVE NEGATIVE Urine Benzodiazepines Screen NEGATIVE NEGATIVE Urine Cocaine Screen NEGATIVE NEGATIVE Urine Cannabinoids Screen NEGATIVE NEGATIVE Discharge Instructions to patient/family Please see electronic discharge instructions given to patient. Discharge Medications Reviewed and agree with Discharge Medication list on patient's Discharge Instruction sheet Clinical Quality Measures DVT/VTE Risk/Contraindication: Risk Factor Score Per Nursin RFS Level Per Nursing on Admit: 2=Moderate Copy Copies To 1: ABENA MOSCOSO BETHANY N MD Dec 12, 2017 11:44 am
--- NOTE | 2017-12-12 11:44 | Discharge Instructions ---
Discharge Inst-Women's Serv Depart Medications New, Converted or Re-Newed RX: Transmitted to Pharmacy New Medications: Ibuprofen (Ibu) 600 Mg Tablet 600 MG PO Q6H PRN for PAIN-MILD TO MODERATE, #60 TAB 0 Refills Continued Medications: Vit W-Ca,Fe,FA(<1 mg) ( Vitamins) 1 Each Tablet 1 TAB PO DAILY, TAB Sertraline HCl (Zoloft) 100 Mg Tablet 100 MG PO DAILY, TAB Discontinued Medications: Ranitidine HCl (Zantac) 150 Mg Tablet 150 MG PO DAILY, TAB Follow Up/Instructions Goal/Follow Up: Follow up with Dr. Moscoso in 6 weeks for visit. Activity Activity: Activity as Tolerated (avoid strenuous activity x 6 weeks) Driving Instructions: You May Drive Nothing Inside Vagina: No Douching, No [place], No Tampons Diet Discharge Diet: Regular Diet Symptoms to Report to : Swelling Increased, Fever Over 101 Degrees F, Pain/ Pressure in Chest, Vaginal Bleeding Increase, Cramps in Feet or Legs, Vaginal Discharge Foul, Dizziness/Fainting, Shortness of Breath For Any Problems or Questions: Contact Your Physician Copies To 1: ABENA MOSCOSO BETHANY N MD Dec 11, 2017 3:21 pm
[2017-12-12 15:45] VITALS: BP 125/80
[2017-12-12 16:55] VITALS: BP 125/80
== END 2017-12-12 16:55 | disposition home or self-care (01) | DRG 774 ==
LOC: LDRP 15:08
PROVIDERS: ADMIT Family Medicine; ATTEND Family Medicine
PROC: 10E0XZZ Delivery of Products of Conception, External Approach (ICD-10-PCS; principal; 2017-12-10)
PROC: 0HQ9XZZ Repair Perineum Skin, External Approach (ICD-10-PCS; 2017-12-10)
PROC: 3E033VJ Introduction of Other Hormone into Peripheral Vein, Percutaneous Approach (ICD-10-PCS; 2017-12-10)
DX: O70.0 First degree perineal laceration during delivery (principal); O43.893 Other placental disorders, third trimester; O09.33 Supervision of pregnancy with insufficient antenatal care, third trimester; O36.8130 Decreased fetal movements, third trimester, not applicable or unspecified; O26.843 Uterine size-date discrepancy, third trimester; O99.344 Other mental disorders complicating childbirth; F31.9 Bipolar disorder, unspecified; O98.42 Viral hepatitis complicating childbirth; Z37.0 Single live birth; B19.20 Unspecified viral hepatitis C without hepatic coma; O99.334 Smoking (tobacco) complicating childbirth; F17.210 Nicotine dependence, cigarettes, uncomplicated; Z3A.38 38 weeks gestation of pregnancy
CPT/HCPCS: 36415; 80053; 80306; 82570; 83615; 84156; 84550; 85007; 85025; 85027; 86850; 86900; 86901

== ENCOUNTER 2021-01-07 17:51 | Outpatient (CLI) | payer MEDICAID ==
[~2021-01-07] VITALS: Ht 162.6 cm; Wt 66.4 kg
[~2021-01-07 17:51] MED LIST changes: +IBUP-844 PO; +PREN1TAB86 PO; +RANI-613 PO; +SERT100T PO
[2021-01-07 18:24] LABS: BILIRUBIN,URINE NEGATIVE (NEGATIVE); CLARITY,URINE CLEAR; COLOR,URINE YELLOW; GLUCOSE, URINE (UA) NEGATIVE (NEGATIVE); KETONES,URINE NEGATIVE (NEGATIVE); LEUKOCYTE ESTERASE ,URINE NEGATIVE (NEGATIVE); NITRITE,URINE NEGATIVE (NEGATIVE); PH,URINE 6.5 (5-9); PROTEIN,URINE NEGATIVE (NEGATIVE)
[2021-01-07 18:30] VITALS: BP 124/80
[2021-01-07 18:32] LABS: BACTERIA,URINE NEGATIVE /HPF
--- NOTE | 2021-01-09 08:07 | Physician Query-Final Dx ---
Clinic Account Progress/Dx Physician Query: Please give diagnosis Please include # weeks gestation Date of Service Jan 07, 2021 at 17:51 ELISABETH SOLO Jan 09, 2021 08:07
== END 2021-01-07 19:15 | disposition home or self-care (01) ==
LOC: WSo 17:51 → LDRP 17:51 → WSo 19:15
PROVIDERS: ATTEND Family Medicine
DX: O26.852 Spotting complicating pregnancy, second trimester (principal); Z3A.23 23 weeks gestation of pregnancy
CPT/HCPCS: 81000

== ENCOUNTER 2021-04-04 18:17 | Outpatient (CLI) | payer MEDICAID ==
[~2021-04-04] VITALS: Ht 162.6 cm; Wt 71.2 kg
[2021-04-04 18:55] VITALS: BP 136/83
[2021-04-04 19:10] VITALS: BP 137/82
[2021-04-04 19:15] VITALS: BP 136/83
[2021-04-04 19:17] LABS: BILIRUBIN,URINE NEGATIVE (NEGATIVE); CLARITY,URINE CLEAR; COLOR,URINE YELLOW; GLUCOSE, URINE (UA) NEGATIVE (NEGATIVE); KETONES,URINE NEGATIVE (NEGATIVE); LEUKOCYTE ESTERASE ,URINE NEGATIVE (NEGATIVE); NITRITE,URINE NEGATIVE (NEGATIVE); PROTEIN,URINE NEGATIVE (NEGATIVE)
[2021-04-04 19:25] VITALS: BP 126/77
[2021-04-04] MEDS ORDERED: PREN-142 PO (19:25)
[2021-04-04] MEDS ORDERED: METF-399 PO (19:25)
[2021-04-04] MEDS ORDERED: DULO30CA3 PO (19:25)
[2021-04-04 19:28] LABS: BACTERIA,URINE NEGATIVE /HPF; WBC,URINE RARE /HPF
[2021-04-04 19:37] LABS: BASOPHILS # (AUTO) 0.1 10^3/uL (0.0-0.1); BASOPHILS % (AUTO) 0 % (0-10); EOSINOPHILS # (AUTO) 0.3 10^3/uL (0.0-0.3); EOSINOPHILS % (AUTO) 3 % (0-10); HEMATOCRIT 35 % (35-52); HEMOGLOBIN 12.2 g/dL (11.5-16.0); LYMPHOCYTES # (AUTO) 2.8 10^3/uL (1.0-4.0); LYMPHOCYTES % (AUTO) 22 % (12-44); MEAN CORPUSCULAR HEMOGLOBIN 32 pg (25-34); MEAN CORPUSCULAR HGB CONC 35 g/dL (32-36); MEAN CORPUSCULAR VOLUME 91 fL (80-99); MEAN PLATELET VOLUME 11.3 fL (9.0-12.2); MONOCYTES # (AUTO) 1.1 10^3/uL (0.0-1.0); MONOCYTES % (AUTO) 9 % (0-12); NEUTROPHILS # (AUTO) 8.1 10^3/uL (1.8-7.8); NEUTROPHILS % (AUTO) 65 % (42-75); PLATELET COUNT 199 10^3/uL (130-400); WHITE BLOOD COUNT 12.5 10^3/uL (4.3-11.0)
[2021-04-04 19:37] LABS: AMPHETAMINE SCREEN, URINE POSITIVE (NEGATIVE); BARBITURATE SCREEN URINE NEGATIVE (NEGATIVE); BENZODIAZEPINES SCREEN URINE POSITIVE (NEGATIVE); CANNABINOID SCREEN, URINE NEGATIVE (NEGATIVE); COCAINE SCREEN URINE NEGATIVE (NEGATIVE); METHADONE STAT NEGATIVE (NEGATIVE); METHAMPHETAMINE SCREEN URINE S POSITIVE (NEGATIVE); OPIATE SCREEN URINE NEGATIVE (NEGATIVE); OXYCODONE STAT NEGATIVE (NEGATIVE); PROPOXYPHENE STAT NEGATIVE (NEGATIVE); TRICYCLIC ANTIDEPRESSANTS SCRE NEGATIVE (NEGATIVE)
[2021-04-04 19:41] VITALS: BP 127/83
[2021-04-04 19:41] LABS: URINE CREATININE FOR RATIO 27 MG/DL (30-125); URINE PROTEIN FOR RATIO ONLY < 6 MG/DL (6-12)
[2021-04-04 19:55] LABS: BILIRUBIN,TOTAL 0.2 MG/DL (0.1-1.0); CALCIUM 8.8 MG/DL (8.5-10.1); CREATININE SERUM 0.66 MG/DL (0.60-1.30); POTASSIUM 3.4 MMOL/L (3.6-5.0); TOTAL PROTEIN 5.7 GM/DL (6.4-8.2); URIC ACID 5.7 MG/DL (2.6-7.2)
--- NOTE | 2021-04-05 07:54 | Physician Query-Final Dx ---
Clinic Account Progress/Dx Physician Query: Please give diagnosis Please include # weeks gestation Date of Service Apr 04, 2021 at 18:17 WHEAT,AprApr 05, 2021 07:54
== END 2021-04-04 20:20 | disposition home or self-care (01) ==
LOC: WSo 18:17 → LDRP 18:17 → WSo 20:20
PROVIDERS: ATTEND Family Medicine
DX: O13.3 Gestational [pregnancy-induced] hypertension without significant proteinuria, third trimester (principal); Z3A.36 36 weeks gestation of pregnancy
CPT/HCPCS: 36415; 80053; 80306; 81000; 82570; 83615; 84156; 84550; 85025; 99212